=== PATIENT | male | born 1945 | race Two or more races ===

== ENCOUNTER → 2016-09-26 | Outpatient (CLI) | payer MEDICARE ==
[2016-09-26 13:43] LABS: APPEARANCE,URINE CLEAR; BILIRUBIN,URINE NEGATIVE (NEGATIVE); GLUCOSE, URINE >=500 mg/dL (NEGATIVE); KETONES,URINE NEGATIVE (NEGATIVE); LEUKOCYTE ESTERASE,URINE NEGATIVE (NEGATIVE); NITRITE,URINE NEGATIVE (NEGATIVE); PROTEIN,URINE NEGATIVE (NEGATIVE); URINE SPECIFIC GRAVITY 1.022; UROBILINOGEN,URINE NEGATIVE mg/dL (<2.0)
[2016-09-26 13:46] LABS: ALBUMIN 4.6 g/dL (3.5-5.0); ANION GAP 15 (5-19); BLOOD UREA NITROGEN 23 mg/dL (7-20); CALCIUM 9.4 mg/dL (8.4-10.2); CARBON DIOXIDE 28 mmol/L (22-30); CHLORIDE 98 mmol/L (98-107); CREATININE RESULT 1.32 mg/dL (0.52-1.25); GLUCOSE 113 mg/dL (75-110); PHOSPHORUS 3.8 mg/dL (2.5-4.5); POTASSIUM 4.1 mmol/L (3.6-5.0); SODIUM 140.7 mmol/L (137-145)
[2016-09-27 07:13] LABS: VITAMIN D 25-HYDROXY 24.9 ng/mL (30.0-100.0)
[2016-09-27 11:39] LABS: CREATININE URINE 137.6 mg/dL (Not Estab.); MICROALBUMIN URINE 23.9 ug/mL (Not Estab.)
== END ==
LOC: OD 11:58
PROVIDERS: ATTEND Internal Medicine Nephrology
DX: E11.22 Type 2 diabetes mellitus with diabetic chronic kidney disease (principal); N18.3 Chronic kidney disease, stage 3 (moderate); N39.0 Urinary tract infection, site not specified
CPT/HCPCS: 36415; 80048; 81001; 82040; 82043; 82306; 82570; 83970; 84100

== ENCOUNTER → 2016-10-22 | Outpatient (CLI) | payer MEDICARE ==
--- NOTE | 2016-10-22 11:45 | RADIOLOGY REPORT (SQ) ---
EXAM DESCRIPTION: CHEST PA/LATERAL COMPLETED DATE/TIME: 10/22/2016 11:30 am REASON FOR STUDY: UNSPECIFIED ASTHMA, UNCOMPLICATED COMPARISON: 05/30/2015 NUMBER OF VIEWS: Two view. TECHNIQUE: Frontal and lateral radiographic views of the chest acquired. LIMITATIONS: None. FINDINGS: LUNGS AND PLEURA: Questionable vague opacity left base. Recommend repeat PA in deep insp iration as well a shallow frontal obliques. Lungs otherwise clear. MEDIASTINUM AND HILAR STRUCTURES: No masses or contour abnormalities. HEART AND VASCULATURE: Heart normal size. No evidence for failure. BONY STRUCTURES: No acute findings. HARDWARE: None. OTHER: No other significant finding. IMPRESSION: NO SIGNIFICANT RADIOGRAPHIC FINDING IN THE CHEST. TECHNICAL DOCUMENTATION: JOB ID: [id number] [employer]- All Rights Reserved
== END ==
LOC: OD 11:12
PROVIDERS: ATTEND Internal Medicine Cardiovascular Disease
DX: I12.9 Hypertensive chronic kidney disease with stage 1 through stage 4 chronic kidney disease, or unspecified chronic kidney disease (principal); N18.3 Chronic kidney disease, stage 3 (moderate); E78.5 Hyperlipidemia, unspecified; E11.22 Type 2 diabetes mellitus with diabetic chronic kidney disease; Z76.89 Persons encountering health services in other specified circumstances
CPT/HCPCS: 71020

== ENCOUNTER → 2016-10-22 | Outpatient (CLI) | payer MEDICARE ==
[2016-10-22 13:10] LABS: CHOLESTEROL 95.64 mg/dL (0-200); Direct HDL 27 mg/dL (>40); TRIGLYCERIDES 265 mg/dL (<150)
[2016-10-22 13:33] LABS: DIRECT LDL < 30 mg/dL (<100)
== END ==
LOC: OD 11:41
PROVIDERS: ATTEND Internal Medicine Cardiovascular Disease
DX: I12.9 Hypertensive chronic kidney disease with stage 1 through stage 4 chronic kidney disease, or unspecified chronic kidney disease (principal); N18.3 Chronic kidney disease, stage 3 (moderate); J45.909 Unspecified asthma, uncomplicated; E78.5 Hyperlipidemia, unspecified; Z76.89 Persons encountering health services in other specified circumstances
CPT/HCPCS: 36415; 71020; 80061; 84443

== ENCOUNTER → 2016-12-05 | Outpatient (CLI) | payer MEDICARE ==
[2016-12-05 14:32] LABS: ALANINE AMINOTRANSFERASE 34 U/L (21-72); ALBUMIN 4.4 g/dL (3.5-5.0); ALKALINE PHOSPHATASE 78 U/L (38-126); ANION GAP 16 (5-19); ASPARTATE AMINO TRANSFERASE 28 U/L (17-59); BILIRUBIN,DIRECT 0.4 mg/dL (0.0-0.4); BILIRUBIN,TOTAL 0.5 mg/dL (0.2-1.3); BLOOD UREA NITROGEN 20 mg/dL (7-20); CALCIUM 9.6 mg/dL (8.4-10.2); CARBON DIOXIDE 25 mmol/L (22-30); CHLORIDE 101 mmol/L (98-107); CREATININE RESULT 1.29 mg/dL (0.52-1.25); GLUCOSE 92 mg/dL (75-110); MAGNESIUM 1.6 mg/dL (1.6-2.3); POTASSIUM 4.6 mmol/L (3.6-5.0); SODIUM 141.6 mmol/L (137-145); TOTAL PROTEIN 7.6 g/dL (6.3-8.2)
== END ==
LOC: OD 12:51
PROVIDERS: ATTEND Physician Assistant
DX: R06.02 Shortness of breath (principal)
CPT/HCPCS: 36415; 80053; 83735; 83880

== ENCOUNTER → 2016-12-31 | Outpatient (CLI) | payer MEDICARE ==
--- NOTE | 2016-12-31 17:27 | RADIOLOGY REPORT (SQ) ---
EXAM DESCRIPTION: CT HEAD WITHOUT COMPLETED DATE/TIME: 12/31/2016 5:09 pm REASON FOR STUDY: HEADACHE R51 HEADACHE COMPARISON: None. TECHNIQUE: Axial images acquired through the brain without intravenous contrast. Images reviewed wi th bone, brain and subdural windows. Images stored on PACS. All CT scanners at this facility use dose modulation, iterative reconstruction, and/or weight based d osing when appropriate to reduce radiation dose to as low as reasonably achievable (ALARA). [facility]: Dose Right [facility]: CareDose [facility]: Dose Right [facility]: Teradose 4D [facility]: [employer] RADIATION DOSE: Up-to-date CT equipment and radiation dose reduction techniques were employed. CTDIv ol: 49.0 mGy. DLP: 783 mGy-cm. mGy. LIMITATIONS: None. FINDINGS: VENTRICLES: Prominent. CEREBRUM: No masses. No hemorrhage. No midline shift. Minimal areas of low density in the white ma tter most likely due to chronic micro-vascular ischemic change. No evidence for acute infarction. CEREBELLUM: No masses. No hemorrhage. No alteration of density. No evidence for acute infarction. EXTRAAXIAL SPACES: Mild age-related involutional change. No fluid collections. No masses. ORBITS AND GLOBE: No intra- or extraconal masses. Normal contour of globe without masses. CALVARIUM: No fracture. PARANASAL SINUSES: No fluid or mucosal thickening. SOFT TISSUES: No mass or hematoma. OTHER: No other significant finding. IMPRESSION: Minimal CHRONIC CHANGES OF ATROPHY AND MICROVASCULAR ISCHEMIA. NO ACUTE PROCESS. EVIDENCE OF ACUTE STROKE: NO. TECHNICAL DOCUMENTATION: JOB ID: [id number] Quality ID # 436: Final reports with documentation of one or more dose reduction techniques (e.g., Au tomated exposure control, adjustment of the mA and/or kV according to patient size, use of iterative reconstruction technique) 2010 [employer]- All Rights Reserved
== END ==
LOC: RAD 16:55
PROVIDERS: ATTEND Internal Medicine
DX: R51 Headache (principal)
CPT/HCPCS: 70450

== ENCOUNTER → 2017-05-29 | Outpatient (CLI) | payer MEDICARE ==
[2017-05-29 18:19] LABS: ABSOLUTE LYMPHOCYTES (AUTO) 3.7 10^3/uL (0.5-4.7); ABSOLUTE MONOCYTES (AUTO) 0.8 10^3/uL (0.1-1.4); BASOPHILS % (AUTO) 0.3 % (0-2); EOSINOPHILS % (AUTO) 8.1 % (0-6); HEMATOCRIT 48.6 % (37.9-51.0); LYMPHOCYTES % (AUTO) 29.3 % (13-45); MEAN CORPUSCULAR HEMOGLOBIN 28.2 pg (27.0-33.4); MEAN CORPUSCULAR HGB CONC 32.8 g/dL (32.0-36.0); MEAN CORPUSCULAR VOLUME 86 fl (80-97); MONOCYTES % (AUTO) 6.6 % (3-13); PLATELET COUNT 236 10^3/uL (150-450); RED BLOOD COUNT 5.66 10^6/uL (4.35-5.55); RED CELL DISTRIBUTION WIDTH 14.2 % (11.5-14.0); SEGMENTED NEUTROPHILS % (AUTO) 55.7 % (42-78); TOTAL CELLS COUNTED % (AUTO) 100 %; WHITE BLOOD COUNT 12.5 10^3/uL (4.0-10.5)
[2017-06-02 12:37] LABS: M001-IGE PENICILLIUM CHRYSOGEN <0.10 kU/L (Class 0); M002-IGE CLADOSPORIUM HERBARUM <0.10 kU/L (Class 0); M003-IGE ASPERGILLUS FUMIGATUS <0.10 kU/L (Class 0); M004-IGE MUCOR RACEMOSUS 0.33 kU/L (Class I); M005-IGE CANDIDA ALBICANS <0.10 kU/L (Class 0); M006-IGE ALTERNARIA ALTERNATA <0.10 kU/L (Class 0); M009-IGE FUSARIUM PROLIFERATUM <0.10 kU/L (Class 0); M010-IGE STEMPHYLIUM HERBARUM <0.10 kU/L (Class 0); M012-IGE AUREOBASIDI PULLULANS <0.10 kU/L (Class 0); M013-IGE PHOMA BETAE <0.10 kU/L (Class 0); M014-IGE EPICOCCUM PURPURASCEN <0.10 kU/L (Class 0)
[2017-06-02 14:02] LABS: IMMUNOGLOBULIN E 1615 IU/mL (0-100)
[2017-06-02 16:37] LABS: ASPERGILLUS FLAVUS Negative (Neg:<1:1); ASPERGILLUS FUMIGATUS Negative (Neg:<1:1)
[2017-06-02 17:26] LABS: ASPERGILLUS NIGER Negative (Neg:<1:1)
== END ==
LOC: OD 17:05
PROVIDERS: ATTEND Physician Assistant
DX: J30.9 Allergic rhinitis, unspecified (principal)
CPT/HCPCS: 36415; 82785; 85025; 86003; 86606

== ENCOUNTER → 2018-01-01 | Outpatient (CLI) | payer MEDICARE ==
--- NOTE | 2018-01-01 12:10 | RADIOLOGY REPORT (SQ) ---
EXAM DESCRIPTION: CHEST 2 VIEWS COMPLETED DATE/TIME: 01/01/2018 12:02 pm REASON FOR STUDY: DYSPNEA R06.00 (TO BE READ WITH NM VQ SCAN) COMPARISON: Two-view chest 05/30/2015, 10/22/2016 EXAM PARAMETERS: NUMBER OF VIEWS: two views TECHNIQUE: Digital Frontal and Lateral radiographic views of the chest acquired. RADIATION DOSE: NA LIMITATIONS: none FINDINGS: LUNGS AND PLEURA: No opacities, masses or pneumothorax. No pleural effusion. MEDIASTINUM AND HILAR STRUCTURES: No masses or contour abnormalities. HEART AND VASCULAR STRUCTURES: Heart normal size. No evidence for failure. BONES: No acute findings. HARDWARE: None in the chest. OTHER: No other significant finding. IMPRESSION: NO ACUTE RADIOGRAPHIC FINDING IN THE CHEST. TECHNICAL DOCUMENTATION: JOB ID: [id number] [employer]- All Rights Reserved Reading location - IP/workstation name: [email or web address]
--- NOTE | 2018-01-01 13:18 | RADIOLOGY REPORT (SQ) ---
EXAM DESCRIPTION: NM LUNG VENT/PERF SCAN COMPLETED DATE/TIME: 01/01/2018 1:07 pm REASON FOR STUDY: DYSPNEA R06.00 DYSPNEA, UNSPECIFIED COMPARISON: None. RADIONUCLIDE AND DOSE: 5 millicuries TC-99m MAA Intravenous 30 millicuries TC-99m DTPA Inhaled aerosol TECHNIQUE: Eight views of the lungs acquired post ventilation of DTPA aerosol. Eight matching views of the lungs acquired following injection of MAA. LIMITATIONS: None. FINDINGS: VENTILATION: Symmetric and homogeneous distribution of DTPA aerosol during ventilatory pha se. No significant areas of photopenia. PERFUSION: Perfusion images with normal homogenous activity and no wedge-shaped or segmental defects. No ventilation-perfusion mismatches. OTHER: No other significant finding. IMPRESSION: NORMAL VENTILATION-PERFUSION LUNG SCAN. NEGATIVE FOR PULMONARY EMBOLI. TECHNICAL DOCUMENTATION: JOB ID: [id number] [employer]- All Rights Reserved Reading location - IP/workstation name: [email or web address]
== END ==
LOC: RAD 11:29
PROVIDERS: ATTEND Physician Assistant
DX: R06.00 Dyspnea, unspecified (principal)
CPT/HCPCS: 71046; 78582; A9540; A9567; Q9969

== ENCOUNTER → 2018-02-21 | Outpatient (CLI) | payer MEDICARE ==
--- NOTE | 2018-02-21 12:18 | RADIOLOGY REPORT (SQ) ---
EXAM DESCRIPTION: CT CHEST WITHOUT COMPLETED DATE/TIME: 02/21/2018 10:49 am REASON FOR STUDY: COUGH R05 COUGH left-sided chest pain COMPARISON: Chest films 01/01/2018, 05/30/2015, 06/22/2014 TECHNIQUE: CT scan performed of the chest without intravenous contrast. Images reviewed with lung, soft tissue and bone windows. Reconstructed coronal and sagittal MPR images reviewed. All images st ored on PACS. All CT scanners at this facility use dose modulation, iterative reconstruction, and/or weight based d osing when appropriate to reduce radiation dose to as low as reasonably achievable (ALARA). [facility]: Dose Right [facility]: CareDose [facility]: Dose Right [facility]: Teradose 4D [facility]: [employer] RADIATION DOSE: CT Rad equipment meets quality standard of care and radiation dose reduction techniq ues were employed. CTDIvol: 20.2 mGy. DLP: 841 mGy-cm. mGy. LIMITATIONS: No technical limitations. FINDINGS: LUNGS AND PLEURA: No masses, infiltrates, or pneumothorax. No pleural effusions or pleura l calcifications. HILAR AND MEDIASTINAL STRUCTURES: No identified masses or abnormal nodes. No obvious aneurysm. HEART AND VASCULAR STRUCTURES: No aneurysm. No pericardial effusion. Mild coronary artery calcifica tions UPPER ABDOMEN: 2 cm fatty polyp within the hepatic flexure of colon on axial image 64 and coronal stevenson ge 44 THYROID AND OTHER SOFT TISSUES: No masses. No adenopathy. Mild bilateral gynecomastia BONES: No significant finding. HARDWARE: None in the chest. OTHER: No other significant findings. IMPRESSION: No CT findings to explain history of left-sided chest pain or cough Incidental finding of a 2 cm fatty polyp in the hepatic flexure colon TECHNICAL DOCUMENTATION: JOB ID: [id number] Quality ID # 436: Final reports with documentation of one or more dose reduction techniques (e.g., Au tomated exposure control, adjustment of the mA and/or kV according to patient size, use of iterative reconstruction technique) 2010 [employer]- All Rights Reserved Reading location - IP/workstation name: [email or web address]
== END ==
LOC: RAD 10:12
PROVIDERS: ATTEND Internal Medicine Pulmonary Disease
DX: R05 Cough (principal); K63.5 Polyp of colon
CPT/HCPCS: 71250

== ENCOUNTER 2018-03-04 06:53 | Day surgery (SDC) | payer MEDICARE ==
[~2018-03-04 06:53] MED LIST: BUPIVACAINE HCL 0.75% INJ/PF (7.5 MG/1 ML) 10 ML SDV OD PRN; KETOROLAC TROMETHAMINE 0.45% 4 DROP/0.4 ML DROPERETTE OD PRN; LIDOCAINE 4% INJ/PF (40 MG/ML) 5 ML AMPUL OD PRN
[2018-03-04] MEDS ORDERED: MIDAZOLAM 2 MG/2 ML INJ ONE (06:56)
[2018-03-04] MEDS ORDERED: LIDOCAINE 1% INJ-PF (10 MG/ML) 30 ML SDV ONE (07:21)
[2018-03-04] MEDS ORDERED: CHONDR SU A NA/HYALUR INTRAOC KIT (SURGICARE) ONE (07:21)
[2018-03-04] MEDS ORDERED: EPINEPHRINE INJ/PF 1 MG/1 ML AMPULE ONE (07:21)
[2018-03-04] MEDS: TETRACAINE HCL 0.5% OPH SOLN 0.6 ML DROPERETTE OD PRN ×2 (07:23→07:47)
[2018-03-04] MEDS: TROPICAMIDE 1% OPH SOLN 3 ML OD PRN ×3 (07:24→07:45)
[2018-03-04] MEDS: CYCLOPENTOLATE 0.2%/PHENYLEPHRINE 1% OPH SOLN 2 ML OD PRN ×3 (07:24→07:45)
[2018-03-04] MEDS: BESIFLOXACIN HCL 0.6% OPH SUSP 5 ML BOTTLE OD PRN ×4 (07:25→08:29)
[2018-03-04] MEDS: DORZOLAMIDE HCL 2%/TIMOLOL MALEAT 0.5% OPH SOLN 10 ML OD PRN ×2 (08:29)
--- NOTE | 2018-03-04 08:47 | [facility] OPERATIVE REPORT E ---
[facility] NAME: RODERICK ANSARI AGE: 72Y DATE OF SURGERY: 03/04/2018 ROOM: PREOPERATIVE DIAGNOSIS: Cataract, right eye. POSTOPERATIVE DIAGNOSIS: Cataract, right eye. PROCEDURE PERFORMED: Phacoemulsification with posterior chamber intraocular lens, right eye. SURGEON: KAZ BERRIOS M.D. ANESTHESIA: Topical with MAC. INDICATIONS FOR SURGERY: Difficulty reading road signs and words on TV. PROCEDURE: The patient was brought to the operating room and placed on the operative table. Following tetracaine drops, topical anesthesia was administered. This consisted of instrument wipe pledgets soaked in a solution of 4% Xylocaine mixed with 0.75% Marcaine in a 1:2 ratio. A 2 x 1 cm pledget was placed in the superior fornix. A 1 x 1 cm pledget was placed in the inferior fornix. The eye was patched shut for 5 minutes. The patch was removed. The eye was sterilely prepped and draped in the usual manner. Lid speculum was placed in the eye. The pledgets were removed and 4-0 black silk sutures were placed around the superior and the inferior rectus muscles to be used as traction. A conjunctival peritomy was made at the 10 o'clock position. Hemostasis was obtained with bipolar cautery. A posterior limbal groove was created using a crescent knife and dissected anteriorly towards the cornea. A sharp point blade was used to create a paracentesis site at the 2 o'clock position. A 2.4 mm keratome was used to enter the anterior chamber through the groove. Viscoelastic was injected into the anterior chamber. An anterior capsulotomy was performed using Utrata forceps in a capsulorrhexis fashion. Hydrodissection and hydrodelineation were performed. Phacoemulsification was performed in giowvw-[id number]-[id number] technique. Total phaco time was 6.91 CDE. Following this, the I/A unit was used to remove residual cortex. Viscoelastic was injected into the capsular bag. Intraocular lens model [id number], 20.0 diopters, serial number [id number], was placed in the capsular bag. The I/A unit was used to remove residual viscoelastic. The wound was seen to be watertight under high and low pressure, and no sutures were placed. The intraocular lens was well centered. The pressure was adjusted in the eye to normal pressure. The 4-0 black silk sutures and lid speculum were removed. One drop of Cosopt was placed in the eye at the end of the surgery. The eye was shielded after Besivance drops were placed. The patient tolerated the procedure well and was sent to the recovery room in good condition. DICTATING PHYSICIAN: KAZ BERRIOS M.D. [id number] PHY#: [id number] ID: [id number] JOB#: [id number] ACCT: [id number] cc:KAZ BERRIOS M.D. >
--- NOTE | 2018-03-04 08:52 | [facility] DISCHARGE SUMMARY E ---
[facility] Discharge Summary NAME: RODERICK ANSARI AGE: 72Y ADMITTED: 03/04/2018 DISCHARGED: 03/04/2018 FINAL DIAGNOSIS: Cataract, right eye. HOSPITAL COURSE: The patient is a 72-year-old who underwent uneventful cataract extraction with intraocular lens implant, right eye, on 03/04/2018. He will be discharged to home. He was instructed to resume preoperative medications; to take Tylenol as needed for discomfort; to keep his eye shielded; to use Durezol, Prolensa, and Besivance at 3 p.m. and 8 p.m.; and to follow up in my office in 1 day. DICTATING PHYSICIAN: KAZ BERRIOS M.D. [id number] PHY#: [id number] ID: [id number] JOB#: [id number] ACCT: [id number] cc:KAZ BERRIOS M.D. >
== END 2018-03-04 09:22 | disposition home or self-care (01) ==
LOC: SC 06:53
PROVIDERS: ATTEND Ophthalmology
DX: H25.813 Combined forms of age-related cataract, bilateral (principal); H43.811 Vitreous degeneration, right eye; G51.33 Clonic hemifacial spasm, bilateral; E11.9 Type 2 diabetes mellitus without complications; I10 Essential (primary) hypertension; E78.00 Pure hypercholesterolemia, unspecified; J45.909 Unspecified asthma, uncomplicated; M10.9 Gout, unspecified; M19.90 Unspecified osteoarthritis, unspecified site; K21.9 Gastro-esophageal reflux disease without esophagitis; I49.9 Cardiac arrhythmia, unspecified; Z86.73 Personal history of transient ischemic attack (TIA), and cerebral infarction without residual deficits; Z79.51 Long term (current) use of inhaled steroids; Z79.82 Long term (current) use of aspirin; Z79.899 Other long term (current) drug therapy; Z79.84 Long term (current) use of oral hypoglycemic drugs; Z88.0 Allergy status to penicillin
CPT/HCPCS: 66984; 82962; V2632; J2250; J3490 ×4; A9270; J0171; 142

== ENCOUNTER 2018-03-18 09:38 | Day surgery (SDC) | payer MEDICARE ==
[~2018-03-18 09:38] MED LIST changes: -BUPIVACAINE HCL 0.75% INJ/PF (7.5 MG/1 ML) 10 ML SDV OD PRN; -KETOROLAC TROMETHAMINE 0.45% 4 DROP/0.4 ML DROPERETTE OD PRN; +KETOROLAC TROMETHAMINE 0.45% 4 DROP/0.4 ML DROPERETTE OS PRN; -LIDOCAINE 4% INJ/PF (40 MG/ML) 5 ML AMPUL OD PRN
[2018-03-18] MEDS: CYCLOPENTOLATE 0.2%/PHENYLEPHRINE 1% OPH SOLN 2 ML OS PRN ×3 (10:22→10:52)
[2018-03-18] MEDS: TROPICAMIDE 1% OPH SOLN 3 ML OS PRN ×3 (10:22→10:52)
[2018-03-18] MEDS: BESIFLOXACIN HCL 0.6% OPH SUSP 5 ML BOTTLE OS PRN ×4 (10:23→11:37)
[2018-03-18] MEDS: TETRACAINE HCL 0.5% OPH SOLN 0.6 ML DROPERETTE OS PRN ×4 (10:24→11:05)
[2018-03-18] MEDS ORDERED: MIDAZOLAM 2 MG/2 ML INJ ONE (10:40)
[2018-03-18] MEDS: BUPIVACAINE HCL 0.75% INJ/PF (7.5 MG/1 ML) 10 ML SDV OS PRN ×2 (11:07)
[2018-03-18] MEDS: LIDOCAINE 4% INJ/PF (40 MG/ML) 5 ML AMPUL OS PRN ×2 (11:07)
[2018-03-18] MEDS: EPINEPHRINE INJ/PF 1 MG/1 ML AMPULE ONE ×2 (11:20)
[2018-03-18] MEDS: CHONDR SU A NA/HYALUR INTRAOC KIT (SURGICARE) ONE ×2 (11:20)
[2018-03-18] MEDS: LIDOCAINE 1% INJ-PF (10 MG/ML) 30 ML SDV ONE ×2 (11:20)
[2018-03-18] MEDS: DORZOLAMIDE HCL 2%/TIMOLOL MALEAT 0.5% OPH SOLN 10 ML OS PRN ×2 (11:37)
--- NOTE | 2018-03-18 21:47 | [facility] OPERATIVE REPORT E ---
[facility] NAME: RODERICK ANSARI AGE: 72Y DATE OF SURGERY: 03/18/2018 ROOM: [facility] Operative Report PREOPERATIVE DIAGNOSIS: CATARACT, LEFT EYE. POSTOPERATIVE DIAGNOSIS: CATARACT, LEFT EYE. PROCEDURE PERFORMED: PHACOEMULSIFICATION WITH POSTERIOR CHAMBER INTRAOCULAR LENS, LEFT EYE. SURGEON: KAZ BERRIOS MD ANESTHESIA: TOPICAL WITH MAC. INDICATIONS FOR SURGERY: Difficulty with driving at night. PROCEDURE: The patient was brought to the Operating Room and placed on the operative table. Following tetracaine drops, topical anesthesia was administered. This consisted of instrument wipe pledgets soaked in a solution of 4% Xylocaine mixed with 0.75% Marcaine in a 1:2 ratio. A 2 x 1 cm pledget was placed in the superior fornix. A 1 x 1 cm pledget was placed in the inferior fornix. The eye was patched shut for 5 minutes. The patch was removed. The eye was sterilely prepped and draped in the usual manner. Lid speculum was placed in the eye. The pledgets were removed. 4-0 black silk sutures were placed around the superior and the inferior rectus muscles to be used as traction. A conjunctival peritomy was made at the 10 o'clock position. Hemostasis was obtained with bipolar cautery. A posterior limbal groove was created using a crescent knife and dissected anteriorly towards the cornea. A sharp point blade was used to create a paracentesis site at the 2 o'clock position. A 2.4 mm keratome was used to enter the anterior chamber through the groove. Viscoelastic was injected into the anterior chamber. An anterior capsulotomy was performed using Utrata forceps in a capsulorrhexis fashion. Hydrodissection and hydrodelineation were performed. Phacoemulsification was performed in prwipk-cci-iicrjng technique. A total of 4.58 seconds phaco time was used. Following this, the I/A unit was used to remove residual cortex. Viscoelastic was injected into the capsular bag. Intraocular lens model SN60WF, 20.0 diopters, serial number [id number] was placed in the capsular bag. The I/A unit was used to remove residual viscoelastic. The wound was seen to be watertight under high and low pressure, and no sutures were placed. The intraocular lens was well centered. The pressure was adjusted in the eye to normal pressure. The 4-0 black silk sutures and lid speculum were removed. The eye was shielded after Besivance drops were placed. The patient tolerated the procedure well and was sent to the Recovery Room in good condition. DICTATING PHYSICIAN: KAZ BERRIOS M.D. DICTATING PHYSICIAN: KAZ BERRIOS M.D. [id number] PHY#: [id number] ID: [id number] JOB#: [id number] ACCT: [id number] cc:KAZ BERRIOS M.D. >
--- NOTE | 2018-03-18 21:52 | [facility] DISCHARGE SUMMARY E ---
[facility] Discharge Summary NAME: RODERICK ANSARI AGE: 72Y ADMITTED: 03/18/2018 DISCHARGED: HOSPITAL COURSE: The patient is a 72-year-old gentleman who underwent uneventful cataract extraction with intraocular lens implant left eye on 03/18/2018. He will be discharged to home. He is instructed to resume preoperative medications, take Tylenol as needed for discomfort. To keep his eye shielded. Besivance, Ilevro, and Durezol at 3:00 p.m. and 8:00 p.m. Follow up in my office in 1 day. DICTATING PHYSICIAN: KAZ BERRIOS M.D. [id number] PHY#: [id number] ID: [id number] JOB#: [id number] ACCT: [id number] cc:KAZ BERRIOS M.D. >
== END 2018-03-18 12:18 | disposition home or self-care (01) ==
LOC: SC 09:38
PROVIDERS: ATTEND Ophthalmology
DX: H25.812 Combined forms of age-related cataract, left eye (principal); Z96.1 Presence of intraocular lens; I25.10 Atherosclerotic heart disease of native coronary artery without angina pectoris; E11.9 Type 2 diabetes mellitus without complications; Z79.02 Long term (current) use of antithrombotics/antiplatelets; I25.2 Old myocardial infarction; Z79.899 Other long term (current) drug therapy; K21.9 Gastro-esophageal reflux disease without esophagitis; Z79.84 Long term (current) use of oral hypoglycemic drugs; E07.9 Disorder of thyroid, unspecified; D64.9 Anemia, unspecified; Z88.0 Allergy status to penicillin; Z79.82 Long term (current) use of aspirin; G47.30 Sleep apnea, unspecified; M10.9 Gout, unspecified
CPT/HCPCS: 66984; 82962; V2632; J2250; J3490 ×4; A9270; J0171; 142

== ENCOUNTER → 2018-09-09 | Outpatient (CLI) | payer MEDICARE ==
[2018-09-09 10:51] LABS: APPEARANCE,URINE CLEAR; BILIRUBIN,URINE NEGATIVE (NEGATIVE); COLOR,URINE YELLOW; GLUCOSE, URINE >=500 mg/dL (NEGATIVE); KETONES,URINE NEGATIVE (NEGATIVE); LEUKOCYTE ESTERASE,URINE NEGATIVE (NEGATIVE); NITRITE,URINE NEGATIVE (NEGATIVE); PROTEIN,URINE NEGATIVE (NEGATIVE); URINE SPECIFIC GRAVITY 1.015; UROBILINOGEN,URINE NEGATIVE mg/dL (<2.0)
[2018-09-09 10:59] LABS: ABSOLUTE BASOPHILS # (AUTO) 0.1 10^3/uL (0.0-0.2); ABSOLUTE LYMPHOCYTES (AUTO) 4.2 10^3/uL (0.5-4.7); ABSOLUTE MONOCYTES (AUTO) 0.6 10^3/uL (0.1-1.4); ABSOLUTE NEUT (AUTO) 5.2 10^3/uL (1.7-8.2); BASOPHILS % (AUTO) 0.5 % (0-2); EOSINOPHILS % (AUTO) 8.7 % (0-6); HEMATOCRIT 42.7 % (37.9-51.0); HEMOGLOBIN 14.1 g/dL (13.5-17.0); MEAN CORPUSCULAR HEMOGLOBIN 27.3 pg (27.0-33.4); MEAN CORPUSCULAR VOLUME 83 fl (80-97); MONOCYTES % (AUTO) 5.9 % (3-13); PLATELET COUNT 173 10^3/uL (150-450); RED BLOOD COUNT 5.16 10^6/uL (4.35-5.55); RED CELL DISTRIBUTION WIDTH 14.5 % (11.5-14.0); SEGMENTED NEUTROPHILS % (AUTO) 46.9 % (42-78); TOTAL CELLS COUNTED % (AUTO) 100 %; WHITE BLOOD COUNT 11.1 10^3/uL (4.0-10.5)
[2018-09-09 11:19] LABS: ALANINE AMINOTRANSFERASE 26 U/L (21-72); ALBUMIN 4.3 g/dL (3.5-5.0); ALKALINE PHOSPHATASE 73 U/L (38-126); ANION GAP 12 (5-19); ASPARTATE AMINO TRANSFERASE 23 U/L (17-59); BILIRUBIN,DIRECT 0.3 mg/dL (0.0-0.4); BILIRUBIN,TOTAL 0.3 mg/dL (0.2-1.3); BLOOD UREA NITROGEN 19 mg/dL (7-20); CALCIUM 9.5 mg/dL (8.4-10.2); CARBON DIOXIDE 24 mmol/L (22-30); CHLORIDE 106 mmol/L (98-107); CHOLESTEROL 94.95 mg/dL (0-200); GLUCOSE 87 mg/dL (75-110); SODIUM 142.2 mmol/L (137-145); TOTAL PROTEIN 7.5 g/dL (6.3-8.2); TRIGLYCERIDES 243 mg/dL (<150)
[2018-09-09 11:29] LABS: UR PRO/CREAT RATIO RESULT 0.1 mg/mg (0.0-0.2); URINE CREATININE 131.3 mg/dL (22-328); URINE PROTEIN 9.6 mg/dL (<12)
[2018-09-09 11:30] LABS: DIRECT LDL 38 mg/dL (<100)
[2018-09-09 11:33] LABS: VLDL CHOLESTEROL 48.6 mg/dL (10-31)
[2018-09-09 11:36] LABS: FREE T4 (FREE THYROXINE) 0.94 ng/dL (0.78-2.19)
[2018-09-09 11:49] LABS: THYROID STIMULATING HORMONE 3.77 uIU/mL (0.47-4.68)
[2018-09-10 10:38] LABS: CREATININE URINE 109.1 mg/dL (Not Estab.); MICROALBUMIN URINE 8.4 ug/mL (Not Estab.)
== END ==
LOC: LAB 10:21
PROVIDERS: ATTEND Internal Medicine
DX: I10 Essential (primary) hypertension (principal); E11.42 Type 2 diabetes mellitus with diabetic polyneuropathy
CPT/HCPCS: 36415; 80053; 80061; 81001; 82043; 82570; 83036; 84156; 84439; 84443; 84550; 85025

== ENCOUNTER 2019-07-07 21:51 | Emergency (ER) | payer MEDICARE ==
--- NOTE | 2019-07-07 22:45 | ER Document Report ---
ED General - General Chief Complaint: Laceration Stated Complaint: FALL/HEAD INJURY Time Seen by Provider: 07/07/19 22:43 Primary Care Provider: JOSE WHITMORE MD [Primary Care Provider] - Follow up as needed Mode of Arrival: Ambulatory Information source: Patient TRAVEL OUTSIDE OF THE [place] IN LAST 30 DAYS: No - HPI Onset: Just prior to arrival Onset/Duration: Sudden Quality of pain: Achy Severity: Mild Pain Level: 1 Associated symptoms: Other - bleeding from right scalp forehead and head laceration Exacerbated by: Denies Relieved by: Denies Similar symptoms previously: No Recently seen / treated by doctor: No Notes: 74 year old male with a history of CAD, HTN, PVD, Asthma, KARIE, DM, Hypothyroidism, Arthritis, GERD, Ulcer, Depression here in the ER for evaluation of a head injury. The patient slipped while in the shower and he hit is head on the ground. The patient denies LOC, nausea, vomiting, dizziness, headache, neck pain, numbness, tingling. The patient says he take a daily aspirin but no other blood thinners. - Related Data Allergies/Adverse Reactions: Penicillins Allergy (Intermediate, Verified 03/14/18 10:55) RASH all over body Past Medical History - General Information source: Patient - Social History Smoking Status: Unknown if Ever Smoked Frequency of alcohol use: Occasional Drug Abuse: None Lives with: Family Family History: Reviewed & Not Pertinent Patient has suicidal ideation: No Patient has homicidal ideation: No - Past Medical History Cardiac Medical History: Reports: Hx Heart Attack - 2014, Hx Hypertension - MEDICATED, Hx Peripheral Vascular Disease Denies: Hx Atrial Fibrillation, Hx Congestive Heart Failure, Hx Coronary Artery Disease, Hx Hypercholesterolemia Pulmonary Medical History: Reports: Hx Asthma - MEDICATED, Hx Bronchitis, Hx Sleep Apnea - wears c pap at night Denies: Hx COPD, Hx Pneumonia, Hx Tuberculosis Neurological Medical History: Denies: Hx Cerebrovascular Accident, Hx Seizures Endocrine Medical History: Reports: Hx Diabetes Mellitus Type 2, Hx Hypothyroidism GI Medical History: Reports: Hx Gastroesophageal Reflux Disease, Hx Hiatal Hernia, Hx Ulcer. Denies: Hx Hepatitis Musculoskeletal Medical History: Reports Hx Arthritis Psychiatric Medical History: Reports: Hx Depression Infectious Medical History: Denies: Hx Hepatitis Past Surgical History: Denies: Hx Open Heart Surgery, Hx Pacemaker - Immunizations Hx Diphtheria, Pertussis, Tetanus Vaccination: No Review of Systems - Review of Systems Constitutional: No symptoms reported EENT: No symptoms reported Cardiovascular: No symptoms reported Respiratory: No symptoms reported Gastrointestinal: No symptoms reported Genitourinary: No symptoms reported Male Genitourinary: No symptoms reported Musculoskeletal: No symptoms reported Skin: Other - Laceration of right forehead Hematologic/Lymphatic: No symptoms reported Neurological/Psychological: No symptoms reported -: Yes All other systems reviewed and negative Physical Exam - Vital signs Vitals: Pulse Pulse Ox 63 96 07/07/19 22:06 07/07/19 22:06 - Notes Notes: GENERAL: Well-appearing, well-nourished and in no acute distress. HEAD: Right sided forehead and scalp trauma/laceration with active bleeding. Normocephalic. EYES: Pupils equal round and reactive to light, extraocular movements intact, sclera anicteric, conjunctiva are normal. ENT: Nares patent, oropharynx clear without exudates. Moist mucous membranes. NECK: Normal range of motion, supple without lymphadenopathy or JVD. LUNGS: Breath sounds clear to auscultation bilaterally and equal. No wheezes rales or rhonchi. HEART: Regular rate and rhythm without murmurs, rubs or gallops. ABDOMEN: Soft, nontender, normoactive bowel sounds. No guarding, no rebound. No masses appreciated. EXTREMITIES: Normal range of motion, no pitting or edema. No clubbing or cyanosis. NEUROLOGICAL: Cranial nerves II through XII grossly intact. Normal speech, normal gait. PSYCH: Normal mood, normal affect. SKIN: 5cm linear laceration over right forehead which extends into the hairline with active bleeding. Rest of skin is warm, Dry, normal turgor, no rashes or lesions noted. Course - Re-evaluation Re-evalutation: 07/08/19 01:11 The patient slipped and hit his head causing a scalp laceration which I repaired in the ER. The patient had no serious intracranial injuries seen on CT. Patient was given wound care instructions and told to have his sutures removed in 7 days. No lab work needed since this was a mechanical fall. - Vital Signs Vital signs: Temp Pulse Resp BP Pulse Ox 97.9 F 56 L 18 141/65 H 95 07/08/19 00:38 07/08/19 00:38 07/08/19 00:38 07/08/19 00:38 07/08/19 00:38 - Diagnostic Test Radiology reviewed: Image reviewed, Reports reviewed Procedures - Laceration/Wound Repair Right Anterior Head Wound length (cm): 5 Wound's Depth, Shape: Superficial, Linear, Contused tissue Laceration pre-procedure: Sterile PPE donned Anesthetic type: 1% Lidocaine w/epi Volume Anesthetic (mLs): 8 Wound explored: Clean Irrigated w/ Saline (mLs): 250 Wound Repaired With: Sutures Suture Size/Type: 5:0, Prolene Number of Sutures: 9 Layer Closure?: No Post-procedure wound care: Other - nursing applied antibiotic ointment and nonstick dressing Complications: No Discharge - Discharge Clinical Impression: Scalp laceration Qualifiers: Encounter type: initial encounter Qualified Code(s): S01.01XA - Laceration without foreign body of scalp, initial encounter Condition: Stable Disposition: HOME, SELF-CARE Instructions: Head Injury Precautions ([facility]), Laceration Care ([facility]) Additional Instructions: You had 9 sutures placed in your scalp wound. Keep your head laceration covered in antibiotic ointment until it is completely healed. Have your sutures removed in 7 days. Use ice-packs for swelling. Use Tylenol and Motrin for pain. Seek medical attention for signs of a wound infection (redness, swelling, wound drainage). Referrals: JOSE WHITMORE MD [Primary Care Provider] - Follow up as needed
--- NOTE | 2019-07-07 23:07 | RADIOLOGY REPORT (SQ) ---
CT HEAD WITHOUT IV CONTRAST CLINICAL STATEMENT: FALL TECHNIQUE: Axial CT images from skull base to vertex without IV contrast. This exam was performed according to our departmental dose optimization program, and includes the following measures where applicable: automated exposure control, adjustment of the mAs and/or kVp according to patient size and/or exam, and an iterative reconstruction algorithm. COMPARISON: Unenhanced CT scan of the brain December 31 FINDINGS: There is no acute intracranial hemorrhage, mass, mass effect or abnormal extra-axial fluid collection. No evidence of an acute territorial infarct is identified. Ventricles and basilar cisterns are patent. The appearance of the brain parenchyma is stable. Calvaria: A scalp hematoma is present over the right convexity and there is dressing material indicating that there is a laceration with bleeding. No radiopaque foreign body is present. The underlying calvaria is intact. Paranasal sinuses: Visualized portions of the orbits and paranasal sinuses are unremarkable. skull base: Unremarkable IMPRESSION: 1. No intracranial hemorrhage or mass lesion. 2. Scalp injury. No fracture.
[2019-07-07] MEDS ORDERED: LIDOCAINE 1%/EPINEPHRINE INJ 20 ML VIAL ONE (23:10)
[2019-07-07] MEDS ORDERED: LIDOCAINE 1.5%/EPINEPHRINE INJ-PF 30 ML SDV INJ ONE (23:41)
[2019-07-07] MEDS ORDERED: DIPH/PERTUSS(ACELL)/TETANUS VAC/PF 0.5 ML SYR (>=10YO) IM ONE (23:42)
[2019-07-08] MEDS ORDERED: LIDOCAINE 1%/EPINEPHRINE INJ 20 ML VIAL INJ ONE (00:17)
[2019-07-08 00:54] VITALS: BP 141/65
== END 2019-07-08 00:45 | disposition home or self-care (01) ==
LOC: ER 21:51
DX: S01.01XA Laceration without foreign body of scalp, initial encounter (principal); S01.81XA Laceration without foreign body of other part of head, initial encounter; W18.2XXA Fall in (into) shower or empty bathtub, initial encounter; E11.51 Type 2 diabetes mellitus with diabetic peripheral angiopathy without gangrene; I10 Essential (primary) hypertension; J45.909 Unspecified asthma, uncomplicated; Z79.82 Long term (current) use of aspirin; Z88.0 Allergy status to penicillin; Z23 Encounter for immunization
CPT/HCPCS: 99283; 90471; 70450; 90715; 12002; J3490

== ENCOUNTER → 2020-04-06 | Outpatient (CLI) | payer MEDICARE ==
--- NOTE | 2020-04-06 15:48 | RADIOLOGY REPORT (SQ) ---
EXAM DESCRIPTION: KNEE BILAT AP UPRIGHT IMAGES COMPLETED DATE/TIME: 04/06/2020 3:28 pm REASON FOR STUDY: (M17.0)BILATERAL PRIMARY OSTEOARTHRITIS OF KNEE M17.0 BILATERAL PRIMARY OSTEOARTH RITIS OF KNEE COMPARISON: None. NUMBER OF VIEWS: One view. TECHNIQUE: AP standing bilateral knees. LIMITATIONS: None. FINDINGS: An AP view of both knees shows significant narrowing of the medial compartment bilaterally . There is subchondral sclerosis in the right medial femoral condyles and right tibial plateau. IMPRESSION: Bilateral medial compartment osteoarthritis, right more than left. TECHNICAL DOCUMENTATION: JOB ID: [id number] [employer]- All Rights Reserved Reading location - IP/workstation name: [email or web address]
== END ==
LOC: RAD 15:08
PROVIDERS: ATTEND Internal Medicine
DX: M17.0 Bilateral primary osteoarthritis of knee (principal)
CPT/HCPCS: 73565

== ENCOUNTER 2020-04-16 22:07 | Inpatient (IN) | payer MEDICARE ==
--- NOTE | 2020-04-16 22:55 | ER Document Report ---
ED Medical Screen (RME) - General Chief Complaint: Chest Pain Stated Complaint: FEVER,COUGH,TROUBLE BREATHING Time Seen by Provider: 04/16/20 22:48 Primary Care Provider: JOSE WHITMORE MD [Primary Care Provider] - Follow up as needed TRAVEL OUTSIDE OF THE [place] IN LAST 30 DAYS: No - HPI Notes: Patient is a 74-year-old male with history of diabetes and asthma who presents with shortness of breath and cough for the past week. Patient also reports fever and diarrhea. Patient states his is also sick but he denies any other known sick contacts or potential COVID exposures. Patient was tested for COVID-19 just prior to [place] and was negative at that time. - Related Data Allergies/Adverse Reactions: Penicillins Allergy (Intermediate, Verified 03/14/18 10:55) RASH all over body Past Medical History - Past Medical History Cardiac Medical History: Reports: Hx Heart Attack - 2013, Hx Hypertension - MEDICATED, Hx Peripheral Vascular Disease Denies: Hx Atrial Fibrillation, Hx Congestive Heart Failure, Hx Coronary Artery Disease, Hx Hypercholesterolemia Pulmonary Medical History: Reports: Hx Asthma - MEDICATED, Hx Bronchitis, Hx Sleep Apnea - wears c pap at night Denies: Hx COPD, Hx Pneumonia, Hx Tuberculosis Neurological Medical History: Denies: Hx Cerebrovascular Accident, Hx Seizures Endocrine Medical History: Reports: Hx Diabetes Mellitus Type 2, Hx Hypothyroid ism GI Medical History: Reports: Hx Gastroesophageal Reflux Disease, Hx Hiatal Hernia, Hx Ulcer. Denies: Hx Hepatitis Musculoskeltal Medical History: Reports Hx Arthritis Psychiatric Medical History: Reports: Hx Depression Infectious Medical History: Denies: Hx Hepatitis Past Surgical History: Denies: Hx Open Heart Surgery, Hx Pacemaker - Immunizations Hx Diphtheria, Pertussis, Tetanus Vaccination: No Physical Exam - Vital signs Vitals: Temp Pulse Resp BP Pulse Ox 99.4 F 85 17 157/89 H 90 L 04/16/20 22:25 04/16/20 22:25 04/16/20 22:25 04/16/20 22:25 04/16/20 22:25 - Respiratory Respiratory status: Labored Breath sounds: Normal Course - Re-evaluation Re-evalutation: I have greeted and performed a rapid initial assessment of this patient. A comprehensive ED assessment and evaluation of the patient, analysis of test results and completion of medical decision making process will be conducted by an additional ED providers. The patient was evaluated during the global COVID-19 pandemic and that diagnosis was suspected/considered upon their initial presentation. Their evaluation, treatment and testing was consistent with current guidelines for patients who present with complaints or symptoms that may be related to COVID-19. - Vital Signs Vital signs: Temp Pulse Resp BP Pulse Ox 99.4 F 85 17 157/89 H 90 L 04/16/20 22:25 04/16/20 22:25 04/16/20 22:25 04/16/20 22:25 04/16/20 22:25 Doctor's Discharge - Discharge Referrals: JOSE WHITMORE MD [Primary Care Provider] - Follow up as needed
[2020-04-16 23:39] LABS: ABSOLUTE LYMPHOCYTES (AUTO) 1.4 10^3/uL (0.5-4.7); ABSOLUTE MONOCYTES (AUTO) 0.8 10^3/uL (0.1-1.4); ABSOLUTE NEUT (AUTO) 5.6 10^3/uL (1.7-8.2); BASOPHILS % (AUTO) 0.5 % (0-2); EOSINOPHILS % (AUTO) 0.2 % (0-6); HEMATOCRIT 47.4 % (37.9-51.0); HEMOGLOBIN 15.8 g/dL (13.5-17.0); LYMPHOCYTES % (AUTO) 18.4 % (13-45); MEAN CORPUSCULAR HEMOGLOBIN 27.2 pg (27.0-33.4); MEAN CORPUSCULAR HGB CONC 33.4 g/dL (32.0-36.0); MEAN CORPUSCULAR VOLUME 81 fl (80-97); MONOCYTES % (AUTO) 9.6 % (3-13); PLATELET COUNT 203 10^3/uL (150-450); RED BLOOD COUNT 5.83 10^6/uL (4.35-5.55); RED CELL DISTRIBUTION WIDTH 15.5 % (11.5-14.0); SEGMENTED NEUTROPHILS % (AUTO) 71.3 % (42-78); TOTAL CELLS COUNTED % (AUTO) 100 %; WHITE BLOOD COUNT 7.8 10^3/uL (4.0-10.5)
[2020-04-16 23:42] LABS: VENOUS BLOOD BASE EXCESS -6.3 mmol/L; VENOUS BLOOD HCO3 19.7 mmol/L (20-32); VENOUS BLOOD PCO2 40.8 mmHg (35-63); VENOUS BLOOD PH 7.3 (7.30-7.42)
[2020-04-16 23:46] LABS: ALBUMIN 4.1 g/dL (3.5-5.0); ALKALINE PHOSPHATASE 69 U/L (38-126); ANION GAP 11 (5-19); ASPARTATE AMINO TRANSFERASE 107 U/L (17-59); BILIRUBIN,DIRECT 0.6 mg/dL (0.0-0.4); BILIRUBIN,TOTAL 1.1 mg/dL (0.2-1.3); BLOOD UREA NITROGEN 20 mg/dL (7-20); CALCIUM 9.3 mg/dL (8.4-10.2); CARBON DIOXIDE 20 mmol/L (22-30); CHLORIDE 105 mmol/L (98-107); GLUCOSE 115 mg/dL (75-110); POTASSIUM 4.2 mmol/L (3.6-5.0); TOTAL PROTEIN 8.5 g/dL (6.3-8.2)
[2020-04-16] MEDS ORDERED: IPRATROPIUM/ALBUTEROL 0.5-2.5 MG/3 ML AMPUL NEB ONE (23:48)
--- NOTE | 2020-04-16 23:50 | ER Document Report ---
ED Respiratory Problem - General Chief Complaint: Chest Pain Stated Complaint: FEVER,COUGH,TROUBLE BREATHING Time Seen by Provider: 04/16/20 22:48 Mode of Arrival: Ambulatory Information source: Patient Notes: 74-year-old male past medical history significant for asthma, diabetes, hypothyroidism, hypertension presents to the emergency room complaining of cough with shortness of breath and subjective fever for the past week. Denies any nausea, vomiting, negative Covid test April 07. with similar symptoms. Per patient's son and [id number] tested positive for Covid on April 08. Patient denies diarrhea. States has been using his home nebulizer without relief of symptoms. TRAVEL OUTSIDE OF THE [place] IN LAST 30 DAYS: No - Related Data Allergies/Adverse Reactions: Penicillins Allergy (Intermediate, Verified 03/14/18 10:55) RASH all over body Past Medical History - General Information source: Patient - Social History Smoking Status: Never Smoker Frequency of alcohol use: None Drug Abuse: None Family History: Reviewed & Not Pertinent - Past Medical History Cardiac Medical History: Reports: Hx Heart Attack - 2013, Hx Hypertension - MEDICATED, Hx Peripheral Vascular Disease Denies: Hx Atrial Fibrillation, Hx Congestive Heart Failure, Hx Coronary Artery Disease, Hx Hypercholesterolemia Pulmonary Medical History: Reports: Hx Asthma - MEDICATED, Hx Bronchitis, Hx Sleep Apnea - wears c pap at night Denies: Hx COPD, Hx Pneumonia, Hx Tuberculosis Neurological Medical History: Denies: Hx Cerebrovascular Accident, Hx Seizures Endocrine Medical History: Reports: Hx Diabetes Mellitus Type 2, Hx Hyp othyroidism GI Medical History: Reports: Hx Gastroesophageal Reflux Disease, Hx Hiatal Hernia, Hx Ulcer. Denies: Hx Hepatitis Musculoskeletal Medical History: Reports Hx Arthritis Psychiatric Medical History: Reports: Hx Depression Infectious Medical History: Denies: Hx Hepatitis Past Surgical History: Denies: Hx Open Heart Surgery, Hx Pacemaker - Immunizations Hx Diphtheria, Pertussis, Tetanus Vaccination: No Review of Systems - Review of Systems Constitutional: Fever EENT: No symptoms reported Cardiovascular: No symptoms reported Respiratory: Cough, Short of breath Gastrointestinal: No symptoms reported Musculoskeletal: No symptoms reported Skin: No symptoms reported Neurological/Psychological: No symptoms reported -: Yes All other systems reviewed and negative Physical Exam - Vital signs Vitals: Temp Pulse Resp BP Pulse Ox 99.4 F 85 17 157/89 H 90 L 04/16/20 22:25 04/16/20 22:25 04/16/20 22:25 04/16/20 22:25 04/16/20 22:25 - General General appearance: Appears well, Alert In distress: Moderate - Respiratory Respiratory status: Tachypnea Chest status: Nontender Breath sounds: Rhonchi, Wheezing Chest palpation: Normal - Cardiovascular Rhythm: Regular Heart sounds: Normal auscultation Murmur: No - Neurological Neuro grossly intact: Yes Cognition: Normal Orientation: AAOx4 Mily Coma Scale Eye Opening: Spontaneous [place] Coma Scale Verbal: Oriented [place] Coma Scale Motor: Obeys Commands Calmar Coma Scale Total: 15 Speech: Normal Motor strength normal: LUE, RUE, LLE, RLE Sensory: Normal - Skin Skin Temperature: Warm Skin Moisture: Dry Skin Color: Normal Course - Re-evaluation Re-evalutation: 04/17/20 02:08 Patient is resting comfortably reviewed all lab and x-ray results with patient. Patient is hypoxic, sats dropped to the 90s when taken off of her oxygen without any exertion. Aware of need for admission. Patient is agreeable to admission. - Vital Signs Vital signs: Temp Pulse Resp BP Pulse Ox 99.4 F 85 32 H 141/80 H 91 L 04/16/20 22:25 04/16/20 22:25 04/17/20 03:01 04/17/20 03:01 04/17/20 03:01 - Laboratory Results Result Diagrams: 04/16/20 23:15 04/16/20 23:15 Laboratory Results Interpreted: 04/16/20 04/16/20 04/16/20 23:15 23:15 23:20 RBC 5.83 H RDW 15.5 H VBG HCO3 19.7 L Sodium 135.9 L Carbon Dioxide 20 L Creatinine 1.39 H Est GFR (MDRD) Non-Af 50 L Glucose 115 H Direct Bilirubin 0.6 H AST 107 H Total Protein 8.5 H SARS-CoV-2 (PCR) 04/16/20 23:20 RBC RDW VBG HCO3 Sodium Carbon Dioxide Creatinine Est GFR (MDRD) Non-Af Glucose Direct Bilirubin AST Total Protein SARS-CoV-2 (PCR) DETECTED H Critical Laboratory Results Reviewed: Yes Attending or Supervising Physician who Reviewed Labs: THALIA MATHEWS - HCO3 19.7, COVID + - Radiology Results Critical Radiology Results Reviewed: Yes Attending or Supervising Physician who Reviewed Radiology: THALIA MATHEWS - Bilateral pneumonia IV antibiotics started - EKG Interpretation by Me EKG shows normal: Sinus rhythm Additional EKG results interpreted by me: 04/17/20 00:16 EKG was interpreted by ER physician Dr. Murrieta No acute STEMI Sinus rhythm LVH Rate [address] wave abnormalities No significant change in EKG from previous EKG of 05/30/2015 - Consults Dr. Alaniz Time consulted: 02:09 - Agrees evaluation, agrees with plan, accepts admission Reason for consultation: 04/17/20 02:09 Admission for pneumonia, COVID-19 positive, hypoxic on IV antibiotics. Consulted provider: will see as inpatient Discharge - Discharge Clinical Impression: Community acquired pneumonia of left lower lobe of lung, COVID-19, Hypoxia, Tachypnea Community acquired pneumonia of left lung Qualifiers: Lung location: upper lobe of lung Qualified Code(s): J18.9 - Pneumonia, unspecified organism Condition: Good Disposition: ADMITTED INPATIENT Admitting Provider: [place] Unit Admitted: [facility]
--- NOTE | 2020-04-16 23:55 | RADIOLOGY REPORT (SQ) ---
CLINICAL HISTORY: shortness of breath and cough COMPARISON: 10/22/2016. 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 There are moderate areas of airspace disease throughout the mid and lower left lung as well as the right perihilar region. There is no pleural effusion. There is no pneumothorax. There are no acute osseous findings. IMPRESSION: Bilateral pneumonia.
[2020-04-16] MEDS ORDERED: AZITHROMYCIN INJ 500 MG VIAL IV ONE (23:57)
[2020-04-17 00:08] LABS: A TYPE INFLUENZA AG NEGATIVE (NEGATIVE); B INFLUENZA AG NEGATIVE (NEGATIVE)
[2020-04-17] MEDS ORDERED: ACETAMINOPHEN 325 MG TABLET PO ONE (00:19)
[2020-04-17] MEDS: ALBUTEROL SULFATE 0.083% NEB 2.5 MG/3 ML AMPUL NEB SCH ×4 (04:55→20:26)
[2020-04-17] MEDS ORDERED: IPRATROPIUM/ALBUTEROL 0.5-2.5 MG/3 ML AMPUL NEB PRN (07:45)
[2020-04-17 09:25] LABS: INTERNATIONAL RATION (INR) 1.14; PROTHROMBIN TIME 14.8 SEC (11.4-15.4)
[2020-04-17 09:26] LABS: FIBRINOGEN 872 mg/dL (209-497)
[2020-04-17] MEDS ORDERED: ENOXAPARIN SODIUM INJ 40 MG/0.4 ML DISP.SYRIN SUBCUT SCH (10:00)
--- NOTE | 2020-04-17 10:52 | PDOC H&P ---
History of Present Illness Admission Date/PCP: 04/17/20 02:33 JOSE WHITMORE MD Patient complains of: Fever and cough History of Present Illness: RODERICK ANSARI is a 74 year old male Is a 74-year-old male with a past significant history of the diabetes hypothy roidism hypertensions asthma came to the emergency department with a complaint of a cough with the shortness of the breath and subjective fever for the past 1 week patient's leticia same symptoms Patient is exposed to the Covid with the son and [id number] last week in emergency department patient's Covid test was positive and his is also positive Patient's denied any nausea no vomiting patient is actually negative Covid test April 07 Patient still requiring oxygen's and at this point patient admitting in the hospital for the Covid pneumonia and hypoxia When I saw the patient's still on nasal cannula complaining of shortness of the breath No chest pain Patient is received the Zithromax Start on a dexamethasone in a Covid protocol we will get the CT angiogram Past Medical History Cardiac Medical History: Reports: Myocardial Infarction - 2013, Hypertension - MEDICATED, Peripheral Vascular Disease Denies: Atrial Fibrillation, Congestive Heart Failure, Coronary Artery Disease, Hyperlipidema Pulmonary Medical History: Reports: Asthma - MEDICATED, Bronchitis, Sleep Apnea - wears c pap at night Denies: Chronic Obstructive Pulmonary Disease (COPD), Pneumonia, Tuberculosis Neurological Medical History: Denies: Seizures Endocrine Medical History: Reports: Diabetes Mellitus Type 2, Hypothyroidism GI Medical History: Reports: Gastroesophageal Reflux Disease, Hiatal Hernia Denies: Hepatitis Musculoskeltal Medical History: Reports: Arthritis Psychiatric Medical History: Reports: Depression Hematology: Reports: Anemia - Iron infusions ABOUT 6 MONTHS Denies: Sickle Cell Disease Past Surgical History Past Surgical History: Denies: Pacemaker Social History Information Source: Patient Smoking Status: Never Smoker Electronic Cigarette use?: No Frequency of Alcohol Use: None Hx Recreational Drug Use: No Drugs: None Hx Prescription Drug Abuse: No Family History Family History: Reviewed & Not Pertinent Parental Family History Reviewed: Yes Children Family History Reviewed: Yes Sibling(s) Family History Reviewed.: Yes Medication/Allergy Home Medications: Allopurinol [Zyloprim 300 mg Tablet] 300 mg PO BID 02/21/12 Buspirone HCl [Buspar 5 mg Tablet] 5 mg PO TID 02/21/12 Levothyroxine Sodium [Synthroid 0.075 mg Tablet] 112 mcg PO DAILY 02/21/12 Metoprolol Succinate [Toprol XL 100 mg Tablet] 100 mg PO DAILY 02/21/12 Omeprazole [Prilosec 40 mg Capsule] 40 mg PO DAILY 02/21/12 Potassium Chloride [Klor-Con 10 Meq Tablet ER] 10 meq PO DAILY 02/21/12 Sertraline HCl [Zoloft 50 mg Tablet] 100 mg PO DAILY 02/21/12 Simvastatin [Zocor 40 mg Tablet] 40 mg PO QHS 02/21/12 Sitagliptin Phos/Metformin HCl [Janumet 50-500 mg Tablet] 1 each PO BID 02/21/12 Trazodone HCl [Desyrel] 100 mg PO DAILY 02/21/12 Albuterol Sulfate [Proair HFA] 1 - 2 puff IH Q4 PRN 07/18/15 Albuterol Sulfate [Ventolin 0.083% Neb 2.5 mg/3 ml Ampul] 1 vial NEB Q4 PRN 07/18/15 Aspirin 81 mg PO DAILY 07/18/15 Budesonide/Formoterol Fumarate [Symbicort Hfa 160-4.5 Mcg Inhaler 6 gm] 2 puff IH Q12 07/18/15 Empagliflozin [Jardiance] 25 mg PO DAILY 07/18/15 Gabapentin 300 mg PO TID 07/18/15 Montelukast Sodium 10 mg PO DAILY 07/18/15 Valsartan/Hydrochlorothiazide [Valsartan-Hctz 320-25 mg Tab] 1 each PO DAILY 07/18/15 Cetirizine HCl [Zyrtec 10 mg Chewable Tab] 10 mg PO DAILY 02/25/18 Clopidogrel Bisulfate [Plavix 75 mg Tablet] 75 mg PO DAILY 02/25/18 Donepezil HCl [Donepezil HCl Odt] 5 mg PO DAILY 02/25/18 Dulaglutide [Trulicity] 0.75 mg SQ .WK 02/25/18 Empagliflozin [Jardiance] 10 mg PO DAILY 02/25/18 Topiramate [Topamax 100 Mg Tablet] 100 mg PO DAILY 02/25/18 Besifloxacin HCl [Besivance 0.6% Oph Susp 5 ml] 1 drop OP ASDIR 03/04/18 Bromfenac Sodium [Prolensa] 1 drop OP ASDIR 03/04/18 Difluprednate [Durezol] 1 drop OP ASDIR 03/04/18 Allergies/Adverse Reactions: Penicillins Allergy (Intermediate, Verified 03/14/18 10:55) RASH all over body Review of Systems Constitutional: PRESENT: fever(s). ABSENT: chills, headache(s), weight gain, weight loss Eyes: ABSENT: visual disturbances Ears: ABSENT: hearing changes Cardiovascular: ABSENT: chest pain, dyspnea on exertion, edema, orthropnea, palpitations Respiratory: PRESENT: cough, dyspnea. ABSENT: hemoptysis Gastrointestinal: ABSENT: abdominal pain, constipation, diarrhea, hematemesis, hematochezia, nausea, vomiting Genitourinary: ABSENT: dysuria, hematuria Musculoskeletal: ABSENT: joint swelling Integumentary: ABSENT: rash, wounds Neurological: ABSENT: abnormal gait, abnormal speech, confusion, dizziness, focal weakness, syncope Psychiatric: ABSENT: anxiety, depression, homidical ideation, suicidal ideation Endocrine: ABSENT: cold intolerance, heat intolerance, menstrual abnormalities, polydipsia, polyuria Hematologic/Lymphatic: ABSENT: easy bleeding, easy bruising, lymphadenopathy Physical Exam Vital Signs: Temp Pulse Resp BP Pulse Ox 97.6 F 79 18 130/57 H 91 L 04/17/20 08:16 04/17/20 08:16 04/17/20 08:00 04/17/20 08:16 04/17/20 08:16 Intake & Output 04/16/20 04/17/20 04/18/20 06:59 06:59 06:59 Intake Total 472 Balance 472 Weight 99.9 kg General appearance: PRESENT: no acute distress, well-developed, well-nourished Head exam: PRESENT: atraumatic, normocephalic Eye exam: PRESENT: conjunctiva pink, EOMI, PERRLA. ABSENT: scleral icterus Ear exam: PRESENT: normal external ear exam Mouth exam: PRESENT: moist, tongue midline Neck exam: PRESENT: full ROM. ABSENT: carotid bruit, JVD, lymphadenopathy, thyromegaly Respiratory exam: PRESENT: clear to auscultation khang Cardiovascular exam: PRESENT: RRR. ABSENT: diastolic murmur, rubs, systolic murmur Pulses: PRESENT: normal dorsalis pedis pul, +2 pedal pulses bilateral Vascular exam: PRESENT: normal capillary refill GI/Abdominal exam: PRESENT: normal bowel sounds, soft. ABSENT: distended, guarding, mass, organolmegaly, rebound, tenderness Rectal exam: PRESENT: deferred Neurological exam: PRESENT: alert, awake, oriented to person, oriented to place, oriented to time, oriented to situation, CN II-XII grossly intact. ABSENT: motor sensory deficit Psychiatric exam: PRESENT: appropriate affect, normal mood. ABSENT: homicidal ideation, suicidal ideation Skin exam: PRESENT: dry, intact, warm. ABSENT: cyanosis, rash Results Laboratory Results: 04/16/20 23:15 04/16/20 23:15 04/16/20 04/16/20 04/16/20 23:15 23:15 23:15 WBC 7.8 RBC 5.83 H Hgb 15.8 Hct 47.4 MCV 81 MCH 27.2 MCHC 33.4 RDW 15.5 H Plt Count 203 Seg Neutrophils % 71.3 VBG pH VBG pCO2 VBG HCO3 VBG Base Excess Sodium 135.9 L Potassium 4.2 Chloride 105 Carbon Dioxide 20 L Anion Gap 11 BUN 20 Creatinine 1.39 H Est GFR ( Amer) > 60 Glucose 115 H Lactic Acid 1.4 Calcium 9.3 Total Bilirubin 1.1 AST 107 H Alkaline Phosphatase 69 Total Protein 8.5 H Albumin 4.1 04/16/20 23:20 WBC RBC Hgb Hct MCV MCH MCHC RDW Plt Count Seg Neutrophils % VBG pH 7.30 VBG pCO2 40.8 VBG HCO3 19.7 L VBG Base Excess -6.3 Sodium Potassium Chloride Carbon Dioxide Anion Gap BUN Creatinine Est GFR ( Amer) Glucose Lactic Acid Calcium Total Bilirubin AST Alkaline Phosphatase Total Protein Albumin 04/16/20 23:15 Troponin I 0.031 Impressions: Chest X-Ray 04/16/20 22:52 IMPRESSION: Bilateral pneumonia. Assessment & Plan - Diagnosis (1) COVID-19 Is this a current diagnosis for this admission?: Yes Plan: Start the patient on a Covid protocol (2) Bilateral pneumonia Qualifiers: Pneumonia type: due to unspecified organism Is this a current diagnosis for this admission?: Yes Plan: Likely a Covid pneumonia we will get the CT angiogram Start the patient on dexamethasone IV antibiotic (3) Hypertension Qualifiers: Hypertension type: essential hypertension Qualified Code(s): I10 - Essential (primary) hypertension Is this a current diagnosis for this admission?: Yes Plan: are stable (4) Coronary artery disease Qualifiers: Coronary Disease-Associated Artery/Lesion type: unspecified vessel or lesion type Associated angina: without angina Is this a current diagnosis for this admission?: Yes Plan: e KG all normal sinus rhythm no acute change currently denies any complaints (5) Hyperlipidemia Qualifiers: Hyperlipidemia type: unspecified Qualified Code(s): E78.5 - Hyperlipidemia, unspecified Is this a current diagnosis for this admission?: Yes (6) Asthma Qualifiers: Asthma severity: moderate Is this a current diagnosis for this admission?: Yes Plan: Current medications with the nebulizer treatments (7) Hypoxia Is this a current diagnosis for this admission?: Yes Plan: Most likely due to the Covid we will get the CT angiogram - Time Time Spent: 50 to 70 Minutes Medications reviewed and adjusted accordingly: Yes Anticipated Discharge Disposition: Home, Self Care Anticipated Discharge Timeframe: within 72 hours - Inpatient Certification Based on my medical assessment, after consideration of the patient's comorbidities, presenting symptoms, or acuity I expect that the services needed warrant INPATIENT care.: Yes I certify that my determination is in accordance with my understanding of Medicare's requirements for reasonable and necessary INPATIENT services [42 CFR 412.3e].: Yes Medical Necessity: Significant Comorbidiites Make Outpatient Treatment Too Risky, Need Close Monitoring Due to Risk of Patient Decompensation, Need for IV Antibiotics Post Hospital Care: D/C 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
[2020-04-17] MEDS: CHOLECALCIFEROL (D3) 1,000 UNIT (25 MCG) TABLET PO SCH (11:26)
[2020-04-17] MEDS: ZINC SULFATE 220 MG CAPSULE PO SCH (11:26)
[2020-04-17] MEDS: DEXAMETHASONE SOD PHOS INJ 10 MG/1 ML VIAL IV SCH (11:26)
[2020-04-17] MEDS: ASCORBIC ACID 500 MG TABLET PO SCH ×2 (11:26→18:39)
[2020-04-17] MEDS: FAMOTIDINE 20 MG TABLET PO SCH ×2 (11:27→21:40)
[2020-04-17] MEDS: AZITHROMYCIN 250 MG TABLET PO SCH (11:27)
[2020-04-17] MEDS: ASPIRIN 81 MG TABLET, ENT COATED PO SCH (11:27)
[2020-04-17] MEDS ORDERED: REMDESIVIR 200 MG in NORMAL SALINE 250 ML IV ONE (14:00)
[2020-04-17] MEDS ORDERED: DEXTROSE 50%-WATER 25 GM/50 ML DISP.SYRIN IV PRN ×2 (14:21)
[2020-04-17] MEDS ORDERED: GLUCAGON,HUMAN RECOMB 1 MG INJ IM PRN (14:21)
[2020-04-17] MEDS ORDERED: DEXTROSE 40% GEL 15 GM TUBE PO PRN ×2 (14:21)
--- NOTE | 2020-04-17 15:53 | RADIOLOGY REPORT (SQ) ---
EXAM DESCRIPTION: CTA CHEST IMAGES COMPLETED DATE/TIME: 04/17/2020 11:44 am REASON FOR STUDY: COVID PNA COMPARISON: CT chest, 02/21/2018. Chest radiograph 04/16/2020 TECHNIQUE: CT scan of the chest performed using helical scanning technique with dynamic intravenous contrast injection. Images reviewed with lung, soft tissue and bone windows. Reconstructed coronal and sagittal MPR images reviewed. Additional 3 dimensional post-processing performed to develop Maximal Intensity Projection images (NC P). All images stored on PACS. All CT scanners at this facility use dose modulation, iterative reconstruction, and/or weight based d osing when appropriate to reduce radiation dose to as low as reasonably achievable (ALARA). [facility]: Dose Right [facility]: CareDose [facility]: Dose Right [facility]: Teradose 4D [facility]: [employer] CONTRAST TYPE AND DOSE: contrast/concentration: Isovue 350.00 mmol/ml; Total Contrast Delivered: 75. 0 ml; Total Saline Delivered: 48.0 ml Contrast bolus not optimized for the pulmonary arteries. RENAL FUNCTION: GFR 58 today RADIATION DOSE: CT Rad equipment meets quality standard of care and radiation dose reduction techniq ues were employed. CTDIvol: 19.8 - 36.1 mGy. DLP: 1255 mGy-cm. . LIMITATIONS: Respiratory motion obscures detail. FINDINGS: LUNGS AND PLEURA: Trachea has normal caliber and appearance. There is diffuse confluent g round-glass attenuation in both lungs. No pleural effusion or pneumothorax. AORTA AND GREAT VESSELS: No aneurysm. No evidence of aortic dissection. HEART: No pericardial effusion. No significant coronary artery calcifications. PULMONARY ARTERIES: There is poor opacification of the pulmonary arteries and respiratory motion whic h obscures detail. No large central pulmonary embolism. The lobar, segmental and subsegmental pulmo nary arteries are poorly evaluated due to motion and phase of contrast timing. HILAR AND MEDIASTINAL STRUCTURES: No identified masses or abnormal nodes. HARDWARE: None in the chest. UPPER ABDOMEN: Mild hepatic steatosis. THYROID AND OTHER SOFT TISSUES: No masses. No adenopathy. BONES: No acute or significant finding. 3D MIPS: Confirm above findings. OTHER: No other significant finding. IMPRESSION: 1. Respiratory motion obscures detail. No large central pulmonary embolism. Cannot exclude a lobar, segmental or subsegmental pulmonary embolism due to respiratory motion and phase of contrast timing. 2. Multifocal ground-glass attenuation in both lungs consistent with multifocal pneumonia. Commonly reported imaging features of COVID-19 pneumonia are present. Other processes such as influenza pneum onia and organizing pneumonia, as can be seen with drug toxicity and connective tissue disease, can c ause a similar imaging pattern. [facility] COMMENT: Quality ID # [id number]: Final reports with documentation of one or more dose reduction techniques (e.g., Automated exposure control, adjustment of the mA and/or kV according to patient size, use of iterative reconstruction technique) TECHNICAL DOCUMENTATION: JOB ID: [id number] 2010 [employer]- All Rights Reserved Reading location - IP/workstation name: [email or web address]
[2020-04-17] MEDS: INSULIN LISPRO 100 UNIT/ML 3 ML VIAL SUBCUT SCH ×2 (17:17→21:16)
[2020-04-17] MEDS: ENOXAPARIN SODIUM INJ 40 MG/0.4 ML DISP.SYRIN SUBCUT SCH (18:39)
--- NOTE | 2020-04-17 22:35 | EKG REPORT ---
SEVERITY:- ABNORMAL ECG - SINUS RHYTHM LEFT VENTRICULAR HYPERTROPHY INFERIOR INFARCT, AGE INDETERMINATE : Confirmed by: Frieda Bates 17-Apr-2020 22:34:25
[2020-04-18] MEDS: ALBUTEROL SULFATE 0.083% NEB 2.5 MG/3 ML AMPUL NEB SCH ×4 (02:09→20:50)
[2020-04-18 05:20] LABS: ABSOLUTE LYMPHOCYTES (AUTO) 0.8 10^3/uL (0.5-4.7); ABSOLUTE MONOCYTES (AUTO) 0.7 10^3/uL (0.1-1.4); ABSOLUTE NEUT (AUTO) 4.2 10^3/uL (1.7-8.2); BASOPHILS % (AUTO) 0.1 % (0-2); HEMATOCRIT 44.2 % (37.9-51.0); HEMOGLOBIN 14.6 g/dL (13.5-17.0); LYMPHOCYTES % (AUTO) 14.1 % (13-45); MEAN CORPUSCULAR HEMOGLOBIN 26.5 pg (27.0-33.4); MEAN CORPUSCULAR HGB CONC 33.1 g/dL (32.0-36.0); MEAN CORPUSCULAR VOLUME 80 fl (80-97); MONOCYTES % (AUTO) 12.8 % (3-13); PLATELET COUNT 224 10^3/uL (150-450); RED BLOOD COUNT 5.52 10^6/uL (4.35-5.55); RED CELL DISTRIBUTION WIDTH 15.3 % (11.5-14.0); TOTAL CELLS COUNTED % (AUTO) 100 %; WHITE BLOOD COUNT 5.7 10^3/uL (4.0-10.5)
[2020-04-18] MEDS ORDERED: ENOXAPARIN SODIUM INJ 100 MG/1 ML DISP.SYRIN SUBCUT ONE (05:34)
[2020-04-18] MEDS: ENOXAPARIN SODIUM INJ 40 MG/0.4 ML DISP.SYRIN SUBCUT SCH (05:37)
[2020-04-18 05:45] LABS: ALBUMIN 3.3 g/dL (3.5-5.0); ALKALINE PHOSPHATASE 66 U/L (38-126); ANION GAP 13 (5-19); ASPARTATE AMINO TRANSFERASE 86 U/L (17-59); BILIRUBIN,DIRECT 0.6 mg/dL (0.0-0.4); BILIRUBIN,TOTAL 0.9 mg/dL (0.2-1.3); BLOOD UREA NITROGEN 25 mg/dL (7-20); CALCIUM 8.9 mg/dL (8.4-10.2); CARBON DIOXIDE 17 mmol/L (22-30); CHLORIDE 110 mmol/L (98-107); GLUCOSE 119 mg/dL (75-110); POTASSIUM 4.1 mmol/L (3.6-5.0)
[2020-04-18 05:59] LABS: C-REACTIVE PROTEIN 231.3 mg/L (<10.0)
[2020-04-18] MEDS: INSULIN LISPRO 100 UNIT/ML 3 ML VIAL SUBCUT SCH ×4 (08:41→21:32)
[2020-04-18] MEDS: AZITHROMYCIN 250 MG TABLET PO SCH (10:03)
[2020-04-18] MEDS: REMDESIVIR 100 MG in NORMAL SALINE 250 ML IV SCH (10:03)
[2020-04-18] MEDS: ZINC SULFATE 220 MG CAPSULE PO SCH (10:04)
[2020-04-18] MEDS: DEXAMETHASONE SOD PHOS INJ 10 MG/1 ML VIAL IV SCH ×2 (10:04→19:52)
[2020-04-18] MEDS: FAMOTIDINE 20 MG TABLET PO SCH ×2 (10:04→21:46)
[2020-04-18] MEDS: ASCORBIC ACID 500 MG TABLET PO SCH ×2 (10:04→17:55)
[2020-04-18] MEDS: CHOLECALCIFEROL (D3) 1,000 UNIT (25 MCG) TABLET PO SCH (10:04)
[2020-04-18] MEDS: ASPIRIN 81 MG TABLET, ENT COATED PO SCH (10:04)
[2020-04-18] MEDS: ENOXAPARIN SODIUM INJ 100 MG/1 ML DISP.SYRIN SUBCUT SCH (17:54)
[2020-04-18] MEDS: AZITHROMYCIN 500 MG in DEXTROSE 5%-WATER 250 ML IV SCH (19:25)
[2020-04-18] MEDS: AZTREONAM 1 GM in DEXTROSE 5%-WATER 50 ML IV SCH (19:43)
--- NOTE | 2020-04-18 20:40 | PDOC PROGRESS REPORT ---
Subjective Date:: 04/18/20 Subjective:: Patient was admitted yesterday for Covid pneumonia, patient is well-known to me he has severe persistent asthma, when I saw him today he was obviously wheezing with retraction of intercostal muscles. He had a CT angiogram of the chest yesterday, this demonstrated diffuse confluent groundglass attenuation in both lungs no pleural effusion no pneumothorax there was no aneurysm there was no evidence of aortic dissection. There was poor opacification of the pulmonary arteries, no large central pulmonary embolism. The patient was multifocal groundglass attenuation in both lung field consistent with multifocal pneumonia. Reason For Visit: COVID Physical Exam Vital Signs: Temp Pulse Resp BP Pulse Ox 97.2 F 69 28 H 166/71 H 95 04/18/20 15:48 04/18/20 15:48 04/18/20 18:30 04/18/20 15:48 04/18/20 18:30 Intake & Output 04/17/20 04/18/20 04/19/20 06:59 06:59 06:59 Intake Total 472 630 250 Output Total 400 500 Balance 472 230 -250 Weight 99.9 kg 98.8 kg General appearance: PRESENT: obese, severe distress Eye exam: PRESENT: PERRLA Respiratory exam: PRESENT: wheezes Cardiovascular exam: PRESENT: +S1, +S2 GI/Abdominal exam: PRESENT: soft Neurological exam: PRESENT: alert, CN II-XII grossly intact Results Laboratory Results: 04/18/20 04:32 04/18/20 04:32 04/18/20 04/18/20 04:32 04:32 WBC 5.7 RBC 5.52 Hgb 14.6 Hct 44.2 MCV 80 MCH 26.5 L MCHC 33.1 RDW 15.3 H Plt Count 224 Seg Neutrophils % 73.0 Sodium 140.4 Potassium 4.1 Chloride 110 H Carbon Dioxide 17 L Anion Gap 13 BUN 25 H Creatinine 1.17 Est GFR ( Amer) > 60 Glucose 119 H Calcium 8.9 Ferritin 454.00 Total Bilirubin 0.9 AST 86 H Alkaline Phosphatase 66 C-Reactive Protein 231.3 H Total Protein 7.0 Albumin 3.3 L 04/17/20 00:46 Blood Blood Culture (PCR) - Final Staphylococcus Species 04/16/20 23:15 Troponin I 0.031 Impressions: Chest X-Ray 01/09/21 22:52 IMPRESSION: Bilateral pneumonia. Chest/Abdomen CTA 04/17/20 00:00 IMPRESSION: 1. Respiratory motion obscures detail. No large central pulmonary embolism. Cannot exclude a lobar, segmental or subsegmental pulmonary embolism due to respiratory motion and phase of contrast timing. 2. Multifocal ground-glass attenuation in both lungs consistent with multifocal pneumonia. Commonly reported imaging features of COVID-19 pneumonia are present. Other processes such as influenza pneumonia and organizing pneumonia, as can be seen with drug toxicity and connective tissue disease, can cause a similar imaging pattern. PneTyp Assessment & Plan - Diagnosis (1) Pneumonia due to COVID-19 virus Is this a current diagnosis for this admission?: Yes Plan: Patient with pneumonia due to SARS-CoV-2 infection, patient already on remdesivir, dexamethasone, (2) Severe persistent asthma Qualifiers: Asthma complication type: with acute exacerbation Qualified Code(s): J45.51 - Severe persistent asthma with (acute) exacerbation Is this a current diagnosis for this admission?: Yes Plan: Patient with underlining asthma, audibly wheezing, increase dexamethasone to 6 mg IV every 12 hours, change oxygen to high flow oxygen, DuoNeb every 3 hours on the schedule (3) Type 2 diabetes mellitus with diabetic polyneuropathy Qualifiers: Diabetes mellitus intermodal dispatcher insulin use: without intermodal dispatcher use Qualified Code(s): E11.42 - Type 2 diabetes mellitus with diabetic polyneuropathy Is this a current diagnosis for this admission?: Yes Plan: Continue Accu-Chek before every meal and at bedtime patient may need insulin drip if serum glucose becomes uncontrolled (4) Bilateral pneumonia Qualifiers: Pneumonia type: due to unspecified organism Lung location: unspecified part of lung Qualified Code(s): J18.9 - Pneumonia, unspecified organism Is this a current diagnosis for this admission?: Yes Plan: I cannot complete rule out bacterial pneumonia, start IV antibiotic - Time Time Spent with patient: 35 or more minutes Level of Care: IMCU Medications reviewed and adjusted accordingly: Yes Anticipated discharge: Home Anticipated DC Timeframe: within 72 hours - Inpatient Certification Based on my medical assessment, after consideration of the patient's comorbidities, presenting symptoms, or acuity I expect that the services needed warrant INPATIENT care.: Yes I certify that my determination is in accordance with my understanding of Medicare's requirements for reasonable and necessary INPATIENT services [42 CFR 412.3e].: Yes
[2020-04-18] MEDS: IPRATROPIUM/ALBUTEROL 0.5-2.5 MG/3 ML AMPUL NEB SCH ×2 (20:49→23:48)
[2020-04-19] MEDS: IPRATROPIUM/ALBUTEROL 0.5-2.5 MG/3 ML AMPUL NEB SCH ×7 (02:45→19:39)
[2020-04-19] MEDS: ALBUTEROL SULFATE 0.083% NEB 2.5 MG/3 ML AMPUL NEB SCH ×3 (02:45→14:36)
[2020-04-19 05:35] LABS: HEMATOCRIT 46.2 % (37.9-51.0); HEMOGLOBIN 15.5 g/dL (13.5-17.0); MEAN CORPUSCULAR HEMOGLOBIN 26.7 pg (27.0-33.4); MEAN CORPUSCULAR HGB CONC 33.6 g/dL (32.0-36.0); MEAN CORPUSCULAR VOLUME 80 fl (80-97); PLATELET COUNT 250 10^3/uL (150-450); WHITE BLOOD COUNT 7.3 10^3/uL (4.0-10.5)
[2020-04-19] MEDS: AZTREONAM 1 GM in DEXTROSE 5%-WATER 50 ML IV SCH ×3 (05:53→21:33)
[2020-04-19] MEDS: ENOXAPARIN SODIUM INJ 100 MG/1 ML DISP.SYRIN SUBCUT SCH (05:53)
[2020-04-19 05:55] LABS: ALBUMIN 3.3 g/dL (3.5-5.0); ALKALINE PHOSPHATASE 70 U/L (38-126); ANION GAP 12 (5-19); ASPARTATE AMINO TRANSFERASE 76 U/L (17-59); BILIRUBIN,DIRECT 0.4 mg/dL (0.0-0.4); BILIRUBIN,TOTAL 0.7 mg/dL (0.2-1.3); BLOOD UREA NITROGEN 29 mg/dL (7-20); C-REACTIVE PROTEIN 86.6 mg/L (<10.0); CALCIUM 8.9 mg/dL (8.4-10.2); CARBON DIOXIDE 20 mmol/L (22-30); CHLORIDE 109 mmol/L (98-107); GLUCOSE 129 mg/dL (75-110); POTASSIUM 4.1 mmol/L (3.6-5.0); TOTAL PROTEIN 6.7 g/dL (6.3-8.2)
[2020-04-19 06:29] LABS: ABSOLUTE LYMPHOCYTES# (MANUAL) 1.8 10^3/uL (0.5-4.7); ABSOLUTE MONOCYTES # (MANUAL) 0.7 10^3/uL (0.1-1.4); BAND NEUTROPHILS % (MANUAL) 1 % (3-5); BASOPHILS % (MANUAL) 0 % (0-2); EOSINOPHILS % (MANUAL) 0 % (0-6); LYMPHOCYTES % (MANUAL) 24 % (13-45); MONOCYTES % (MANUAL) 9 % (3-13); SEGMENTED NEUTROPHILS % (MAN) 66 % (42-78); TOTAL CELLS COUNTED 100
[2020-04-19 06:30] LABS: ANISOCYTOSIS SLIGHT; POLYCHROMASIA SLIGHT
[2020-04-19 06:31] LABS: PLATELET COMMENT ADEQUATE
[2020-04-19 08:29] LABS: INTERNATIONAL RATION (INR) 1.21; PROTHROMBIN TIME 15.5 SEC (11.4-15.4)
[2020-04-19 08:34] LABS: FIBRINOGEN 874 mg/dL (209-497)
[2020-04-19] MEDS: INSULIN LISPRO 100 UNIT/ML 3 ML VIAL SUBCUT SCH ×4 (08:45→21:30)
[2020-04-19] MEDS: ZINC SULFATE 220 MG CAPSULE PO SCH (09:54)
[2020-04-19] MEDS: CHOLECALCIFEROL (D3) 1,000 UNIT (25 MCG) TABLET PO SCH (09:55)
[2020-04-19] MEDS: ASCORBIC ACID 500 MG TABLET PO SCH ×2 (09:55→17:26)
[2020-04-19] MEDS: AZITHROMYCIN 250 MG TABLET PO SCH (09:55)
[2020-04-19] MEDS: FAMOTIDINE 20 MG TABLET PO SCH ×2 (09:55→21:32)
[2020-04-19] MEDS: ASPIRIN 81 MG TABLET, ENT COATED PO SCH (09:55)
[2020-04-19] MEDS: DEXAMETHASONE SOD PHOS INJ 10 MG/1 ML VIAL IV SCH ×2 (09:56→21:33)
[2020-04-19] MEDS: REMDESIVIR 100 MG in NORMAL SALINE 250 ML IV SCH (10:25)
[2020-04-19] MEDS: AZITHROMYCIN 500 MG in DEXTROSE 5%-WATER 250 ML IV SCH (12:23)
[2020-04-19] MEDS ORDERED: EMPAGLIFLOZIN 25 MG PO SCH (12:30)
[2020-04-19] MEDS ORDERED: (PENDING PHARMACY ID) (Budesonide/Formoterol Fumarate 60 PUFF/6 GM Inhaler) IH SCH (12:30)
[2020-04-19] MEDS ORDERED: (PENDING PHARMACY ID) (Omeprazole [Omeprazole] 20 MG Capsule.Dr) PO SCH (12:30)
--- NOTE | 2020-04-19 13:32 | RADIOLOGY REPORT (SQ) ---
EXAM DESCRIPTION: CHEST SINGLE VIEW IMAGES COMPLETED DATE/TIME: 04/19/2020 12:50 pm REASON FOR STUDY: pneumonia COMPARISON: 04/16/2020 EXAM PARAMETERS: NUMBER OF VIEWS: One view. TECHNIQUE: Single frontal radiographic view of the chest acquired. RADIATION DOSE: NA LIMITATIONS: None. FINDINGS: LUNGS AND PLEURA: Stable, persistent appearance of multifocal airspace opacities. No pleu ral effusion. No pneumothorax. MEDIASTINUM AND HILAR STRUCTURES: No masses. Contour normal. HEART AND VASCULAR STRUCTURES: Heart normal in size. Normal vasculature. BONES: No acute findings. HARDWARE: None in the chest. OTHER: No other significant finding. IMPRESSION: Stable pulmonary exam demonstrating multifocal airspace opacities. TECHNICAL DOCUMENTATION: JOB ID: [id number] 2010 [employer] All Rights Reserved Reading location - IP/workstation name: [email or web address]
[2020-04-19] MEDS: ENOXAPARIN SODIUM INJ 40 MG/0.4 ML DISP.SYRIN SUBCUT SCH (14:06)
[2020-04-19] MEDS: MONTELUKAST SODIUM 10 MG TABLET PO SCH (14:06)
[2020-04-19] MEDS: ALLOPURINOL 300 MG TABLET PO SCH (14:06)
[2020-04-19] MEDS: CLOPIDOGREL BISULFATE 75 MG TABLET PO SCH (14:06)
[2020-04-19] MEDS: PANTOPRAZOLE SODIUM 20 MG TABLET.DR PO SCH (14:06)
[2020-04-19] MEDS: SERTRALINE HCL 50 MG TABLET PO SCH (14:06)
[2020-04-19] MEDS: LEVOTHYROXINE SODIUM 0.112 MG TABLET PO SCH (14:10)
[2020-04-19] MEDS: FLUTICASONE/VILANTEROL 200-25 MCG/DOSE IH SCH (15:18)
[2020-04-19] MEDS: METFORMIN HCL 500 MG TABLET PO SCH (16:27)
[2020-04-19] MEDS: SIMVASTATIN 10 MG TABLET PO SCH (17:26)
[2020-04-19] MEDS ORDERED: METFORMIN HCL 1000 MG PO SCH (18:00)
[2020-04-19] MEDS ORDERED: SIMVASTATIN 20 MG PO SCH (18:00)
--- NOTE | 2020-04-19 21:27 | PDOC PROGRESS REPORT ---
Subjective Date:: 04/19/20 Subjective:: Patient seen by the bedside, he is not as distressed as he was yesterday, presen tly on high flow oxygen, IV dexamethasone every 12 hours remdesivir, DuoNeb nebulizer Reason For Visit: COVID Physical Exam Vital Signs: Temp Pulse Resp BP Pulse Ox 98.2 F 60 24 H 143/68 H 97 04/19/20 15:59 04/19/20 19:39 04/19/20 19:39 04/19/20 15:59 04/19/20 19:39 Intake & Output 04/18/20 04/19/20 04/20/20 06:59 06:59 06:59 Intake Total 016 452 5584 Output Total 400 850 775 Balance 230 -350 305 Weight 98.8 kg 98.1 kg General appearance: PRESENT: other - Patient is alert on high flow oxygen nasal cannula Eye exam: PRESENT: PERRLA Respiratory exam: PRESENT: wheezes Cardiovascular exam: PRESENT: +S1, +S2 GI/Abdominal exam: PRESENT: soft Neurological exam: PRESENT: alert Results Laboratory Results: 04/19/20 04:35 04/19/20 04:38 04/19/20 04/19/20 04:35 04:38 WBC 7.3 RBC 5.80 H Hgb 15.5 Hct 46.2 MCV 80 MCH 26.7 L MCHC 33.6 RDW 15.0 H Plt Count 250 Seg Neutrophils % Not Reportable Sodium 141.2 Potassium 4.1 Chloride 109 H Carbon Dioxide 20 L Anion Gap 12 BUN 29 H Creatinine 1.03 Est GFR ( Amer) > 60 Glucose 129 H Calcium 8.9 Ferritin 425.00 Total Bilirubin 0.7 AST 76 H Alkaline Phosphatase 70 C-Reactive Protein 86.6 H Total Protein 6.7 Albumin 3.3 L 04/17/20 00:46 Blood Blood Culture (PCR) - Final Staphylococcus Species 04/16/20 23:15 Troponin I 0.031 Impressions: Chest/Abdomen CTA 04/17/20 00:00 IMPRESSION: 1. Respiratory motion obscures detail. No large central pulmonary embolism. Cannot exclude a lobar, segmental or subsegmental pulmonary embolism due to respiratory motion and phase of contrast timing. 2. Multifocal ground-glass attenuation in both lungs consistent with multifocal pneumonia. Commonly reported imaging features of COVID-19 pneumonia are present. Other processes such as influenza pneumonia and organizing pneumonia, as can be seen with drug toxicity and connective tissue disease, can cause a similar imaging pattern. PneTyp Chest X-Ray 04/19/20 00:00 IMPRESSION: Stable pulmonary exam demonstrating multifocal airspace opacities. Assessment & Plan - Diagnosis (1) Pneumonia due to COVID-19 virus Is this a current diagnosis for this admission?: Yes Plan: Patient with pneumonia due to SARS-CoV-2 infection, patient to continue remdesivir, dexamethasone, (2) Severe persistent asthma Qualifiers: Asthma complication type: with acute exacerbation Qualified Code(s): J45.51 - Severe persistent asthma with (acute) exacerbation Is this a current diagnosis for this admission?: Yes Plan: He will continue dexamethasone, DuoNeb high flow oxygen (3) Type 2 diabetes mellitus with diabetic polyneuropathy Qualifiers: Diabetes mellitus jail insulin use: without keno terminal operator use Qualified Code(s): E11.42 - Type 2 diabetes mellitus with diabetic polyneuropathy Is this a current diagnosis for this admission?: Yes Plan: Continue Accu-Chek before every meal and at bedtime patient may need insulin drip if serum glucose becomes uncontrolled (4) Bilateral pneumonia Qualifiers: Pneumonia type: due to unspecified organism Lung location: unspecified part of lung Qualified Code(s): J18.9 - Pneumonia, unspecified organism Is this a current diagnosis for this admission?: Yes Plan: I cannot complete rule out bacterial pneumonia, Continue IV antibiotic - Time Time Spent with patient: 35 or more minutes Level of Care: IMCU Medications reviewed and adjusted accordingly: Yes Anticipated discharge: Home Anticipated DC Timeframe: Other - Inpatient Certification Based on my medical assessment, after consideration of the patient's comorbidities, presenting symptoms, or acuity I expect that the services needed warrant INPATIENT care.: Yes I certify that my determination is in accordance with my understanding of Medicare's requirements for reasonable and necessary INPATIENT services [42 CFR 412.3e].: Yes
[2020-04-19] MEDS: TRAZODONE HCL 50 MG TABLET PO SCH (21:32)
[2020-04-19] MEDS: DONEPEZIL HCL 5 MG TABLET PO SCH (21:32)
[2020-04-19] MEDS ORDERED: TRAZODONE HCL 100 MG PO SCH (22:00)
[2020-04-19] MEDS: ACETAMINOPHEN 325 MG TABLET PO PRN (23:03)
[2020-04-20] MEDS: IPRATROPIUM/ALBUTEROL 0.5-2.5 MG/3 ML AMPUL NEB SCH ×6 (00:28→20:29)
[2020-04-20 04:59] LABS: HEMATOCRIT 43.4 % (37.9-51.0); HEMOGLOBIN 14.7 g/dL (13.5-17.0); MEAN CORPUSCULAR HEMOGLOBIN 27.1 pg (27.0-33.4); MEAN CORPUSCULAR HGB CONC 33.8 g/dL (32.0-36.0); MEAN CORPUSCULAR VOLUME 80 fl (80-97); PLATELET COUNT 285 10^3/uL (150-450); RED BLOOD COUNT 5.41 10^6/uL (4.35-5.55); RED CELL DISTRIBUTION WIDTH 15.4 % (11.5-14.0); WHITE BLOOD COUNT 8.7 10^3/uL (4.0-10.5)
[2020-04-20] MEDS: LEVOTHYROXINE SODIUM 0.112 MG TABLET PO SCH (05:19)
[2020-04-20] MEDS: AZTREONAM 1 GM in DEXTROSE 5%-WATER 50 ML IV SCH ×3 (05:19→22:55)
[2020-04-20 05:35] LABS: ALKALINE PHOSPHATASE 62 U/L (38-126); ANION GAP 9 (5-19); ASPARTATE AMINO TRANSFERASE 64 U/L (17-59); BILIRUBIN,DIRECT 0.4 mg/dL (0.0-0.4); BILIRUBIN,TOTAL 0.8 mg/dL (0.2-1.3); BLOOD UREA NITROGEN 31 mg/dL (7-20); C-REACTIVE PROTEIN 66.2 mg/L (<10.0); CALCIUM 8.5 mg/dL (8.4-10.2); CARBON DIOXIDE 19 mmol/L (22-30); CHLORIDE 109 mmol/L (98-107); GLUCOSE 146 mg/dL (75-110); POTASSIUM 4.5 mmol/L (3.6-5.0); TOTAL PROTEIN 6.6 g/dL (6.3-8.2)
[2020-04-20 05:54] LABS: ABSOLUTE LYMPHOCYTES# (MANUAL) 0.7 10^3/uL (0.5-4.7); ABSOLUTE MONOCYTES # (MANUAL) 0.1 10^3/uL (0.1-1.4); BAND NEUTROPHILS % (MANUAL) 1 % (3-5); BASOPHILS % (MANUAL) 0 % (0-2); EOSINOPHILS % (MANUAL) 0 % (0-6); LYMPHOCYTES % (MANUAL) 8 % (13-45); MONOCYTES % (MANUAL) 1 % (3-13); SEGMENTED NEUTROPHILS % (MAN) 90 % (42-78); TOTAL CELLS COUNTED 100
[2020-04-20 05:55] LABS: ANISOCYTOSIS SLIGHT; PLATELET COMMENT ADEQUATE; TOXIC VACUOLATION PRESENT
[2020-04-20] MEDS: ACETAMINOPHEN 325 MG TABLET PO PRN ×2 (06:33→23:38)
[2020-04-20] MEDS: INSULIN LISPRO 100 UNIT/ML 3 ML VIAL SUBCUT SCH ×4 (07:45→22:44)
[2020-04-20] MEDS: PANTOPRAZOLE SODIUM 20 MG TABLET.DR PO SCH (07:48)
[2020-04-20] MEDS: METFORMIN HCL 500 MG TABLET PO SCH ×2 (07:48→16:43)
[2020-04-20] MEDS: AZITHROMYCIN 250 MG TABLET PO SCH (09:45)
[2020-04-20] MEDS: ENOXAPARIN SODIUM INJ 40 MG/0.4 ML DISP.SYRIN SUBCUT SCH (09:45)
[2020-04-20] MEDS: MONTELUKAST SODIUM 10 MG TABLET PO SCH (09:45)
[2020-04-20] MEDS: CLOPIDOGREL BISULFATE 75 MG TABLET PO SCH (09:46)
[2020-04-20] MEDS: FAMOTIDINE 20 MG TABLET PO SCH ×2 (09:46→22:48)
[2020-04-20] MEDS: ASPIRIN 81 MG TABLET, ENT COATED PO SCH (09:46)
[2020-04-20] MEDS: ASCORBIC ACID 500 MG TABLET PO SCH ×2 (09:46→17:03)
[2020-04-20] MEDS: SERTRALINE HCL 50 MG TABLET PO SCH (09:46)
[2020-04-20] MEDS: CHOLECALCIFEROL (D3) 1,000 UNIT (25 MCG) TABLET PO SCH (09:46)
[2020-04-20] MEDS: ZINC SULFATE 220 MG CAPSULE PO SCH (09:46)
[2020-04-20] MEDS: REMDESIVIR 100 MG in NORMAL SALINE 250 ML IV SCH (09:46)
[2020-04-20] MEDS: ALLOPURINOL 300 MG TABLET PO SCH (09:46)
[2020-04-20] MEDS: DEXAMETHASONE SOD PHOS INJ 10 MG/1 ML VIAL IV SCH ×2 (09:47→22:48)
[2020-04-20] MEDS: FLUTICASONE/VILANTEROL 200-25 MCG/DOSE IH SCH (09:47)
[2020-04-20] MEDS: AZITHROMYCIN 500 MG in DEXTROSE 5%-WATER 250 ML IV SCH (10:41)
--- NOTE | 2020-04-20 15:30 | PDOC PROGRESS REPORT ---
Subjective Date:: 04/20/20 Subjective:: Patient seen by the bedside, he continues to require oxygen maximizer Reason For Visit: COVID Physical Exam Vital Signs: Temp Pulse Resp BP Pulse Ox 97.4 F 91 16 145/73 H 100 04/20/20 11:51 04/20/20 14:00 04/20/20 12:08 04/20/20 11:51 04/20/20 12:08 Intake & Output 04/19/20 04/20/20 04/21/20 06:59 06:59 06:59 Intake Total 500 1400 500 Output Total 850 925 Balance -350 475 500 Weight 98.1 kg 98.6 kg General appearance: PRESENT: mild distress Eye exam: PRESENT: PERRLA Respiratory exam: PRESENT: crackles Cardiovascular exam: PRESENT: +S1, +S2 GI/Abdominal exam: PRESENT: soft Neurological exam: PRESENT: alert, CN II-XII grossly intact Results Laboratory Results: 04/20/20 04:19 04/20/20 04:19 04/20/20 04/20/20 04:19 04:19 WBC 8.7 RBC 5.41 Hgb 14.7 Hct 43.4 MCV 80 MCH 27.1 MCHC 33.8 RDW 15.4 H Plt Count 285 Seg Neutrophils % Not Reportable Sodium 136.8 L Potassium 4.5 Chloride 109 H Carbon Dioxide 19 L Anion Gap 9 BUN 31 H Creatinine 0.90 Est GFR ( Amer) > 60 Glucose 146 H Calcium 8.5 Ferritin 372.00 Total Bilirubin 0.8 AST 64 H Alkaline Phosphatase 62 C-Reactive Protein 66.2 H Total Protein 6.6 Albumin 3.0 L 04/17/20 00:46 Blood Blood Culture (PCR) - Final Staphylococcus Species 04/17/20 00:46 Blood Blood Culture - Final Staphylococcus Hominis 04/16/20 23:15 Troponin I 0.031 Impressions: Chest/Abdomen CTA 04/17/20 00:00 IMPRESSION: 1. Respiratory motion obscures detail. No large central pulmonary embolism. Cannot exclude a lobar, segmental or subsegmental pulmonary embolism due to respiratory motion and phase of contrast timing. 2. Multifocal ground-glass attenuation in both lungs consistent with multifocal pneumonia. Commonly reported imaging features of COVID-19 pneumonia are present. Other processes such as influenza pneumonia and organizing pneumonia, as can be seen with drug toxicity and connective tissue disease, can cause a similar imaging pattern. [facility] 04/19/20 00:00 IMPRESSION: Stable pulmonary exam demonstrating multifocal airspace opacities. Assessment & Plan - Diagnosis (1) Pneumonia due to COVID-19 virus Is this a current diagnosis for this admission?: Yes Plan: Patient with pneumonia due to SARS-CoV-2 infection, patient to continue remdesivir, dexamethasone, (2) Severe persistent asthma Qualifiers: Asthma complication type: with acute exacerbation Qualified Code(s): J45.51 - Severe persistent asthma with (acute) exacerbation Is this a current diagnosis for this admission?: Yes Plan: He will continue dexamethasone, DuoNeb high flow oxygen (3) Type 2 diabetes mellitus with diabetic polyneuropathy Qualifiers: Diabetes mellitus skilled nursing insulin use: without local intermodal truck driver use Qualified Code(s): E11.42 - Type 2 diabetes mellitus with diabetic polyneuropathy Is this a current diagnosis for this admission?: Yes Plan: Continue Accu-Chek before every meal and at bedtime patient may need insulin drip if serum glucose becomes uncontrolled (4) Bilateral pneumonia Qualifiers: Pneumonia type: due to unspecified organism Lung location: unspecified part of lung Qualified Code(s): J18.9 - Pneumonia, unspecified organism Is this a current diagnosis for this admission?: Yes Plan: I cannot complete rule out bacterial pneumonia, Continue IV antibiotic - Time Time Spent with patient: 35 or more minutes Level of Care: IMCU Medications reviewed and adjusted accordingly: Yes Anticipated discharge: Home - Inpatient Certification Based on my medical assessment, after consideration of the patient's comorbidities, presenting symptoms, or acuity I expect that the services needed warrant INPATIENT care.: Yes I certify that my determination is in accordance with my understanding of Medicare's requirements for reasonable and necessary INPATIENT services [42 CFR 412.3e].: Yes
--- NOTE | 2020-04-20 16:37 | RADIOLOGY REPORT (SQ) ---
EXAM DESCRIPTION: CHEST SINGLE VIEW IMAGES COMPLETED DATE/TIME: 04/20/2020 4:23 pm REASON FOR STUDY: pneumonia COMPARISON: Previous day NUMBER OF VIEWS: One view. TECHNIQUE: Single frontal radiographic image of the chest acquired. LIMITATIONS: None. FINDINGS: LUNGS AND PLEURA: Bilateral airspace disease slightly more conspicuous compared to the renetta or. No evidence of cavitation. No large effusions. MEDIASTINUM AND HEART: Stable heart size and mediastinal structures. BONY STRUCTURES: No acute findings. HARDWARE: None. OTHER: No other significant finding. IMPRESSION: Rehydration versus progressing pneumonia. TECHNICAL DOCUMENTATION: JOB ID: [id number] Reading location - IP/workstation name: [email or web address]
[2020-04-20] MEDS: SIMVASTATIN 10 MG TABLET PO SCH (17:03)
[2020-04-20] MEDS ORDERED: FUROSEMIDE INJ/PF 40 MG/4 ML SDV IV ONE (20:45)
[2020-04-20] MEDS: TRAZODONE HCL 50 MG TABLET PO SCH (22:48)
[2020-04-20] MEDS: DONEPEZIL HCL 5 MG TABLET PO SCH (22:48)
[2020-04-21] MEDS: IPRATROPIUM/ALBUTEROL 0.5-2.5 MG/3 ML AMPUL NEB SCH ×7 (00:57→23:26)
[2020-04-21 05:16] LABS: HEMATOCRIT 43.7 % (37.9-51.0); HEMOGLOBIN 14.6 g/dL (13.5-17.0); MEAN CORPUSCULAR HEMOGLOBIN 26.7 pg (27.0-33.4); MEAN CORPUSCULAR HGB CONC 33.5 g/dL (32.0-36.0); MEAN CORPUSCULAR VOLUME 80 fl (80-97); RED BLOOD COUNT 5.47 10^6/uL (4.35-5.55); RED CELL DISTRIBUTION WIDTH 14.9 % (11.5-14.0); WHITE BLOOD COUNT 9.2 10^3/uL (4.0-10.5)
[2020-04-21 05:31] LABS: ALKALINE PHOSPHATASE 66 U/L (38-126); ANION GAP 10 (5-19); ASPARTATE AMINO TRANSFERASE 50 U/L (17-59); BILIRUBIN,DIRECT 0.4 mg/dL (0.0-0.4); BILIRUBIN,TOTAL 0.8 mg/dL (0.2-1.3); BLOOD UREA NITROGEN 31 mg/dL (7-20); CALCIUM 8.5 mg/dL (8.4-10.2); CARBON DIOXIDE 21 mmol/L (22-30); CHLORIDE 107 mmol/L (98-107); GLUCOSE 155 mg/dL (75-110); POTASSIUM 4.2 mmol/L (3.6-5.0); TOTAL PROTEIN 6.6 g/dL (6.3-8.2)
[2020-04-21 05:46] LABS: C-REACTIVE PROTEIN 180.2 mg/L (<10.0)
[2020-04-21 05:53] LABS: ABSOLUTE LYMPHOCYTES# (MANUAL) 1.2 10^3/uL (0.5-4.7); ABSOLUTE MONOCYTES # (MANUAL) 0.3 10^3/uL (0.1-1.4); BASOPHILS % (MANUAL) 0 % (0-2); EOSINOPHILS % (MANUAL) 0 % (0-6); LYMPHOCYTES % (MANUAL) 13 % (13-45); MONOCYTES % (MANUAL) 3 % (3-13); SEGMENTED NEUTROPHILS % (MAN) 84 % (42-78); TOTAL CELLS COUNTED 100
[2020-04-21 05:54] LABS: ANISOCYTOSIS SLIGHT; PLATELET CLUMPS PRESENT; PLATELET COMMENT ADEQUATE; PLATELET COUNT 299 10^3/uL (150-450)
[2020-04-21] MEDS: AZTREONAM 1 GM in DEXTROSE 5%-WATER 50 ML IV SCH ×3 (05:54→21:39)
[2020-04-21] MEDS: LEVOTHYROXINE SODIUM 0.112 MG TABLET PO SCH (05:54)
[2020-04-21] MEDS: INSULIN LISPRO 100 UNIT/ML 3 ML VIAL SUBCUT SCH ×4 (07:30→21:38)
[2020-04-21] MEDS: PANTOPRAZOLE SODIUM 20 MG TABLET.DR PO SCH (07:39)
[2020-04-21] MEDS: METFORMIN HCL 500 MG TABLET PO SCH ×2 (07:39→17:10)
--- NOTE | 2020-04-21 08:59 | RADIOLOGY REPORT (SQ) ---
EXAM DESCRIPTION: CHEST SINGLE VIEW IMAGES COMPLETED DATE/TIME: 04/21/2020 8:50 am REASON FOR STUDY: pneumonia COMPARISON: 04/20/2020 EXAM PARAMETERS: NUMBER OF VIEWS: One view. TECHNIQUE: Single frontal radiographic view of the chest acquired. RADIATION DOSE: NA LIMITATIONS: None. FINDINGS: LUNGS AND PLEURA: Low lung volumes limits examination. Bilateral airspace disease in the lungs as on the prior study. No pneumothorax or pleural effusion. MEDIASTINUM AND HILAR STRUCTURES: Stable appearance. HEART AND VASCULAR STRUCTURES: Stable appearance. BONES: No acute findings. HARDWARE: None in the chest. OTHER: No other significant finding. IMPRESSION: 1. No significant interval changes since the prior study dated 04/20/2020. Bilateral ai rspace disease is again noted. TECHNICAL DOCUMENTATION: JOB ID: [id number] 2010 [employer]- All Rights Reserved Reading location - IP/workstation name: [email or web address]
[2020-04-21] MEDS: DEXAMETHASONE SOD PHOS INJ 10 MG/1 ML VIAL IV SCH ×2 (10:00→21:39)
[2020-04-21] MEDS: ENOXAPARIN SODIUM INJ 40 MG/0.4 ML DISP.SYRIN SUBCUT SCH (10:00)
[2020-04-21] MEDS: CHOLECALCIFEROL (D3) 1,000 UNIT (25 MCG) TABLET PO SCH (10:00)
[2020-04-21] MEDS: SERTRALINE HCL 50 MG TABLET PO SCH (10:00)
[2020-04-21] MEDS: ZINC SULFATE 220 MG CAPSULE PO SCH (10:00)
[2020-04-21] MEDS: ASCORBIC ACID 500 MG TABLET PO SCH ×2 (10:00→17:10)
[2020-04-21] MEDS: REMDESIVIR 100 MG in NORMAL SALINE 250 ML IV SCH (10:00)
[2020-04-21] MEDS: ASPIRIN 81 MG TABLET, ENT COATED PO SCH (10:01)
[2020-04-21] MEDS: FAMOTIDINE 20 MG TABLET PO SCH ×2 (10:01→21:39)
[2020-04-21] MEDS: ALLOPURINOL 300 MG TABLET PO SCH (10:01)
[2020-04-21] MEDS: MONTELUKAST SODIUM 10 MG TABLET PO SCH (10:01)
[2020-04-21] MEDS: FLUTICASONE/VILANTEROL 200-25 MCG/DOSE IH SCH (10:01)
[2020-04-21] MEDS: CLOPIDOGREL BISULFATE 75 MG TABLET PO SCH (10:01)
[2020-04-21 10:32] LABS: FIBRINOGEN 814 mg/dL (209-497); INTERNATIONAL RATION (INR) 1.38; PROTHROMBIN TIME 17.1 SEC (11.4-15.4)
[2020-04-21] MEDS: AZITHROMYCIN 500 MG in DEXTROSE 5%-WATER 250 ML IV SCH (11:26)
[2020-04-21] MEDS: SIMVASTATIN 10 MG TABLET PO SCH (17:10)
[2020-04-21] MEDS: NORMAL SALINE 250 ML with FUROSEMIDE 250 MG IV PRN ×2 (18:20)
--- NOTE | 2020-04-21 19:56 | PDOC PROGRESS REPORT ---
Subjective Date:: 04/21/20 Subjective:: Patient seen by the bedside, he continues to require high flow oxygen, presently on the maximum dose. On auscultation of the chest there is diffuse crackles there is no definite wheeze suggesting possible fluid in his lung, he will be treated with low-dose Furosemide infusion.Patient's condition remains very precarious Reason For Visit: COVID Physical Exam Vital Signs: Temp Pulse Resp BP Pulse Ox 98.8 F 71 32 H 141/67 H 92 04/21/20 16:23 04/21/20 16:23 04/21/20 17:47 04/21/20 16:23 04/21/20 17:47 Intake & Output 04/20/20 04/21/20 04/22/20 06:59 06:59 06:59 Intake Total 1400 1160 1118 Output Total 925 700 600 Balance 475 460 518 Weight 98.6 kg 98.6 kg General appearance: PRESENT: obese, severe distress Eye exam: PRESENT: PERRLA Respiratory exam: PRESENT: crackles Cardiovascular exam: PRESENT: +S1, +S2 GI/Abdominal exam: PRESENT: soft Neurological exam: PRESENT: alert Results Laboratory Results: 04/21/20 04:32 04/21/20 04:32 04/21/20 04/21/20 04:32 04:32 WBC 9.2 RBC 5.47 Hgb 14.6 Hct 43.7 MCV 80 MCH 26.7 L MCHC 33.5 RDW 14.9 H Plt Count 299 Seg Neutrophils % Not Reportable Sodium 138.0 Potassium 4.2 Chloride 107 Carbon Dioxide 21 L Anion Gap 10 BUN 31 H Creatinine 1.12 Est GFR ( Amer) > 60 Glucose 155 H Calcium 8.5 Ferritin 362.00 Total Bilirubin 0.8 AST 50 Alkaline Phosphatase 66 C-Reactive Protein 180.2 H Total Protein 6.6 Albumin 3.0 L 04/16/20 23:15 Troponin I 0.031 Impressions: Chest/Abdomen CTA 04/17/20 00:00 IMPRESSION: 1. Respiratory motion obscures detail. No large central pulmonary embolism. Cannot exclude a lobar, segmental or subsegmental pulmonary embolism due to respiratory motion and phase of contrast timing. 2. Multifocal ground-glass attenuation in both lungs consistent with multifocal pneumonia. Commonly reported imaging features of COVID-19 pneumonia are present. Other processes such as influenza pneumonia and organizing pneumonia, as can be seen with drug toxicity and connective tissue disease, can cause a s imilar imaging pattern. PneTyp Chest X-Ray 04/21/20 00:00 IMPRESSION: 1. No significant interval changes since the prior study dated 04/20/2020. Bilateral airspace disease is again noted. Assessment & Plan - Diagnosis (1) Pneumonia due to COVID-19 virus Is this a current diagnosis for this admission?: Yes Plan: Patient with pneumonia due to SARS-CoV-2 infection, patient to continue remdesivir, dexamethasone, (2) Severe persistent asthma Qualifiers: Asthma complication type: with acute exacerbation Qualified Code(s): J45.51 - Severe persistent asthma with (acute) exacerbation Is this a current diagnosis for this admission?: Yes Plan: He will continue dexamethasone, DuoNeb high flow oxygen (3) Type 2 diabetes mellitus with diabetic polyneuropathy Qualifiers: Diabetes mellitus residential insulin use: without buttermaker continuous churn use Qualified Code(s): E11.42 - Type 2 diabetes mellitus with diabetic polyneuropathy Is this a current diagnosis for this admission?: Yes Plan: Continue Accu-Chek before every meal and at bedtime patient may need insulin drip if serum glucose becomes uncontrolled (4) Bilateral pneumonia Qualifiers: Pneumonia type: due to unspecified organism Lung location: unspecified part of lung Qualified Code(s): J18.9 - Pneumonia, unspecified organism Is this a current diagnosis for this admission?: Yes Plan: I cannot complete rule out bacterial pneumonia, Continue IV antibiotic (5) Acute hypoxemic respiratory failure Is this a current diagnosis for this admission?: Yes Plan: Patient will continue high flow oxygen nasal cannula - Time Time Spent with patient: 35 or more minutes Level of Care: IMCU Medications reviewed and adjusted accordingly: Yes Anticipated discharge: Home Anticipated DC Timeframe: Other
[2020-04-21] MEDS: DONEPEZIL HCL 5 MG TABLET PO SCH (21:39)
[2020-04-21] MEDS: TRAZODONE HCL 50 MG TABLET PO SCH (21:39)
[2020-04-21] MEDS: ACETAMINOPHEN 325 MG TABLET PO PRN (22:59)
[2020-04-22] MEDS: IPRATROPIUM/ALBUTEROL 0.5-2.5 MG/3 ML AMPUL NEB SCH ×6 (04:11→23:59)
[2020-04-22] MEDS: AZTREONAM 1 GM in DEXTROSE 5%-WATER 50 ML IV SCH ×3 (05:04→23:19)
[2020-04-22] MEDS: LEVOTHYROXINE SODIUM 0.112 MG TABLET PO SCH (05:05)
[2020-04-22 05:38] LABS: ABSOLUTE LYMPHOCYTES (AUTO) 0.8 10^3/uL (0.5-4.7); ABSOLUTE MONOCYTES (AUTO) 0.4 10^3/uL (0.1-1.4); ABSOLUTE NEUT (AUTO) 8.2 10^3/uL (1.7-8.2); BASOPHILS % (AUTO) 0.5 % (0-2); EOSINOPHILS % (AUTO) 0.3 % (0-6); HEMATOCRIT 41.6 % (37.9-51.0); LYMPHOCYTES % (AUTO) 8.2 % (13-45); MEAN CORPUSCULAR HEMOGLOBIN 27.1 pg (27.0-33.4); MEAN CORPUSCULAR HGB CONC 33.7 g/dL (32.0-36.0); MEAN CORPUSCULAR VOLUME 80 fl (80-97); MONOCYTES % (AUTO) 4.6 % (3-13); PLATELET COUNT 324 10^3/uL (150-450); RED BLOOD COUNT 5.17 10^6/uL (4.35-5.55); RED CELL DISTRIBUTION WIDTH 14.9 % (11.5-14.0); SEGMENTED NEUTROPHILS % (AUTO) 86.4 % (42-78); TOTAL CELLS COUNTED % (AUTO) 100 %; WHITE BLOOD COUNT 9.5 10^3/uL (4.0-10.5)
[2020-04-22 05:51] LABS: ALBUMIN 2.8 g/dL (3.5-5.0); ALKALINE PHOSPHATASE 67 U/L (38-126); ANION GAP 8 (5-19); ASPARTATE AMINO TRANSFERASE 43 U/L (17-59); BILIRUBIN,DIRECT 0.3 mg/dL (0.0-0.4); BILIRUBIN,TOTAL 0.7 mg/dL (0.2-1.3); BLOOD UREA NITROGEN 37 mg/dL (7-20); CALCIUM 8.4 mg/dL (8.4-10.2); CARBON DIOXIDE 22 mmol/L (22-30); CHLORIDE 108 mmol/L (98-107); GLUCOSE 152 mg/dL (75-110); POTASSIUM 4.4 mmol/L (3.6-5.0); TOTAL PROTEIN 6.4 g/dL (6.3-8.2)
[2020-04-22 06:08] LABS: C-REACTIVE PROTEIN 202.6 mg/L (<10.0)
[2020-04-22] MEDS: PANTOPRAZOLE SODIUM 20 MG TABLET.DR PO SCH (08:44)
[2020-04-22] MEDS: METFORMIN HCL 500 MG TABLET PO SCH ×2 (08:44→17:03)
[2020-04-22] MEDS: INSULIN LISPRO 100 UNIT/ML 3 ML VIAL SUBCUT SCH ×4 (08:53→23:18)
[2020-04-22] MEDS: ENOXAPARIN SODIUM INJ 40 MG/0.4 ML DISP.SYRIN SUBCUT SCH (09:23)
[2020-04-22] MEDS: DEXAMETHASONE SOD PHOS INJ 10 MG/1 ML VIAL IV SCH ×2 (09:23→23:17)
[2020-04-22] MEDS: ZINC SULFATE 220 MG CAPSULE PO SCH (09:24)
[2020-04-22] MEDS: FAMOTIDINE 20 MG TABLET PO SCH ×2 (09:24→23:17)
[2020-04-22] MEDS: CLOPIDOGREL BISULFATE 75 MG TABLET PO SCH (09:24)
[2020-04-22] MEDS: FLUTICASONE/VILANTEROL 200-25 MCG/DOSE IH SCH (09:24)
[2020-04-22] MEDS: MONTELUKAST SODIUM 10 MG TABLET PO SCH (09:24)
[2020-04-22] MEDS: CHOLECALCIFEROL (D3) 1,000 UNIT (25 MCG) TABLET PO SCH (09:24)
[2020-04-22] MEDS: ASCORBIC ACID 500 MG TABLET PO SCH ×2 (09:24→17:03)
[2020-04-22] MEDS: ASPIRIN 81 MG TABLET, ENT COATED PO SCH (09:24)
[2020-04-22] MEDS: SERTRALINE HCL 50 MG TABLET PO SCH (09:24)
[2020-04-22] MEDS: ALLOPURINOL 300 MG TABLET PO SCH (09:24)
[2020-04-22] MEDS: AZITHROMYCIN 500 MG in DEXTROSE 5%-WATER 250 ML IV SCH (09:42)
--- NOTE | 2020-04-22 09:50 | RADIOLOGY REPORT (SQ) ---
EXAM DESCRIPTION: CHEST SINGLE VIEW IMAGES COMPLETED DATE/TIME: 04/22/2020 9:15 am REASON FOR STUDY: pneumonia COMPARISON: 04/21/2020 EXAM PARAMETERS: NUMBER OF VIEWS: One view. TECHNIQUE: Single frontal radiographic view of the chest acquired. RADIATION DOSE: NA LIMITATIONS: None. FINDINGS: LUNGS AND PLEURA: Extensive bilateral parenchymal opacities, left greater than right, sommer sly stable. No significant effusion. No pneumothorax. MEDIASTINUM AND HILAR STRUCTURES: No masses. Contour normal. HEART AND VASCULAR STRUCTURES: Heart normal in size. Normal vasculature. BONES: No acute findings. HARDWARE: None in the chest. OTHER: No other significant finding. IMPRESSION: Stable diffuse bilateral airspace disease, left greater right. TECHNICAL DOCUMENTATION: JOB ID: [id number] 2010 [employer]- All Rights Reserved Reading location - IP/workstation name: [email or web address]
[2020-04-22] MEDS: SIMVASTATIN 10 MG TABLET PO SCH (17:03)
[2020-04-22] MEDS: NORMAL SALINE 250 ML with FUROSEMIDE 250 MG IV PRN ×2 (18:01)
--- NOTE | 2020-04-22 20:43 | PDOC PROGRESS REPORT ---
Subjective Date:: 04/22/20 Subjective:: Patient seen by the bedside, he continues to require high flow oxygen, presently on the maximum dose. On auscultation of the chest there is diffuse crackles there is no definite wheeze suggesting possible fluid in his lung, he will be treated with low-dose Furosemide infusion.Patient's condition remains very precarious 04/22/2020 Patient patient seen by the bedside, he continues to require supplemental oxygen via high flow nasal cannula. On auscultation of the chest there is minimal crackles compared to yesterday, he was started on low-dose furosemide infusion yesterday. The chest x-ray from today demonstrated bilateral diffuse infiltrates worse on the left than the right but is stable it is no worsening. Reason For Visit: COVID Physical Exam Vital Signs: Temp Pulse Resp BP Pulse Ox 98.4 F 69 24 H 150/84 H 91 L 04/22/20 17:04 04/22/20 19:50 04/22/20 19:50 04/22/20 17:04 04/22/20 19:50 Intake & Output 04/21/20 04/22/20 04/23/20 06:59 06:59 06:59 Intake Total 1160 1368 417 Output Total 700 1200 1400 Balance 460 168 -983 Weight 98.6 kg 98.6 kg General appearance: PRESENT: other - Patient on high flow oxygen Eye exam: PRESENT: PERRLA Respiratory exam: PRESENT: rales Cardiovascular exam: PRESENT: +S1, +S2 GI/Abdominal exam: PRESENT: soft Neurological exam: PRESENT: alert Results Laboratory Results: 04/22/20 04:46 04/22/20 04:46 04/22/20 04/22/20 04:46 04:46 WBC 9.5 RBC 5.17 Hgb 14.0 Hct 41.6 MCV 80 MCH 27.1 MCHC 33.7 RDW 14.9 H Plt Count 324 Seg Neutrophils % 86.4 H Sodium 138.2 Potassium 4.4 Chloride 108 H Carbon Dioxide 22 Anion Gap 8 BUN 37 H Creatinine 1.08 Est GFR ( Amer) > 60 Glucose 152 H Calcium 8.4 Ferritin 372.00 Total Bilirubin 0.7 AST 43 Alkaline Phosphatase 67 C-Reactive Protein 202.6 H Total Protein 6.4 Albumin 2.8 L 04/16/20 23:15 Blood Blood Culture - Final NO GROWTH IN 5 DAYS 04/16/20 23:15 Troponin I 0.031 Impressions: Chest/Abdomen CTA 04/17/20 00:00 IMPRESSION: 1. Respiratory motion obscures detail. No large central pulmonary embolism. Cannot exclude a lobar, segmental or subsegmental pulmonary embolism due to respiratory motion and phase of contrast timing. 2. Multifocal ground-glass attenuation in both lungs consistent with multifocal pneumonia. Commonly reported imaging features of COVID-19 pneumonia are present. Other processes such as influenza pneumonia and organizing pneumonia, as can be seen with drug toxicity and connective tissue disease, can cause a sim ilar imaging pattern. PneTyp Chest X-Ray 04/22/20 00:00 IMPRESSION: Stable diffuse bilateral airspace disease, left greater right. Assessment & Plan - Diagnosis (1) Pneumonia due to COVID-19 virus Is this a current diagnosis for this admission?: Yes Plan: Patient with pneumonia due to SARS-CoV-2 infection,He has finished the IV remdesivir, he will continue IV dexamethasone for a total of 10 days (2) Severe persistent asthma Qualifiers: Asthma complication type: with acute exacerbation Qualified Code(s): J45.51 - Severe persistent asthma with (acute) exacerbation Is this a current diagnosis for this admission?: Yes Plan: He will continue dexamethasone, DuoNeb high flow oxygen (3) Type 2 diabetes mellitus with diabetic polyneuropathy Qualifiers: Diabetes mellitus bottomer operator insulin use: without alf use Qualified Code(s): E11.42 - Type 2 diabetes mellitus with diabetic polyneuropathy Is this a current diagnosis for this admission?: Yes Plan: Continue Accu-Chek before every meal and at bedtime patient may need insulin drip if serum glucose becomes uncontrolled (4) Bilateral pneumonia Qualifiers: Pneumonia type: due to unspecified organism Lung location: unspecified part of lung Qualified Code(s): J18.9 - Pneumonia, unspecified organism Is this a current diagnosis for this admission?: Yes Plan: I cannot complete rule out bacterial pneumonia, Continue IV antibiotic, Chest x- ray stable (5) Acute hypoxemic respiratory failure Is this a current diagnosis for this admission?: Yes Plan: Patient will continue high flow oxygen nasal cannula - Time Time Spent with patient: 35 or more minutes Level of Care: IMCU Medications reviewed and adjusted accordingly: Yes Anticipated discharge: Home Anticipated DC Timeframe: Other - Inpatient Certification Based on my medical assessment, after consideration of the patient's comorbidities, presenting symptoms, or acuity I expect that the services needed warrant INPATIENT care.: Yes I certify that my determination is in accordance with my understanding of Medicare's requirements for reasonable and necessary INPATIENT services [42 CFR 412.3e].: Yes
[2020-04-22] MEDS: DONEPEZIL HCL 5 MG TABLET PO SCH (23:17)
[2020-04-22] MEDS: TRAZODONE HCL 50 MG TABLET PO SCH (23:17)
[2020-04-23] MEDS: IPRATROPIUM/ALBUTEROL 0.5-2.5 MG/3 ML AMPUL NEB SCH ×6 (04:25→23:21)
[2020-04-23] MEDS: LEVOTHYROXINE SODIUM 0.112 MG TABLET PO SCH (05:07)
[2020-04-23] MEDS: AZTREONAM 1 GM in DEXTROSE 5%-WATER 50 ML IV SCH ×3 (05:08→22:44)
[2020-04-23 05:48] LABS: ALBUMIN 2.7 g/dL (3.5-5.0); ALKALINE PHOSPHATASE 70 U/L (38-126); ANION GAP 9 (5-19); ASPARTATE AMINO TRANSFERASE 44 U/L (17-59); BILIRUBIN,DIRECT 0.3 mg/dL (0.0-0.4); BILIRUBIN,TOTAL 0.6 mg/dL (0.2-1.3); BLOOD UREA NITROGEN 39 mg/dL (7-20); CALCIUM 8.3 mg/dL (8.4-10.2); CARBON DIOXIDE 21 mmol/L (22-30); CHLORIDE 106 mmol/L (98-107); GLUCOSE 160 mg/dL (75-110); POTASSIUM 4.5 mmol/L (3.6-5.0); TOTAL PROTEIN 6.5 g/dL (6.3-8.2)
[2020-04-23 05:52] LABS: HEMATOCRIT 41.2 % (37.9-51.0); HEMOGLOBIN 13.7 g/dL (13.5-17.0); MEAN CORPUSCULAR HEMOGLOBIN 26.9 pg (27.0-33.4); MEAN CORPUSCULAR HGB CONC 33.3 g/dL (32.0-36.0); MEAN CORPUSCULAR VOLUME 81 fl (80-97); PLATELET COUNT 368 10^3/uL (150-450); RED BLOOD COUNT 5.09 10^6/uL (4.35-5.55); RED CELL DISTRIBUTION WIDTH 15.3 % (11.5-14.0); WHITE BLOOD COUNT 12.6 10^3/uL (4.0-10.5)
[2020-04-23 06:33] LABS: ABSOLUTE LYMPHOCYTES# (MANUAL) 0.6 10^3/uL (0.5-4.7); ABSOLUTE MONOCYTES # (MANUAL) 0.9 10^3/uL (0.1-1.4); BASOPHILS % (MANUAL) 0 % (0-2); EOSINOPHILS % (MANUAL) 0 % (0-6); LYMPHOCYTES % (MANUAL) 5 % (13-45); MONOCYTES % (MANUAL) 7 % (3-13); SEGMENTED NEUTROPHILS % (MAN) 88 % (42-78); TOTAL CELLS COUNTED 100
[2020-04-23 06:35] LABS: ANISOCYTOSIS 1+; BURR CELLS SLIGHT; OVALOCYTES SLIGHT; PLATELET COMMENT ADEQUATE; POIKILOCYTOSIS 1+; TOXIC GRANULATION SLIGHT
[2020-04-23] MEDS: INSULIN LISPRO 100 UNIT/ML 3 ML VIAL SUBCUT SCH ×4 (08:42→22:45)
[2020-04-23] MEDS: FAMOTIDINE 20 MG TABLET PO SCH ×2 (10:09→22:45)
[2020-04-23] MEDS: CHOLECALCIFEROL (D3) 1,000 UNIT (25 MCG) TABLET PO SCH (10:09)
[2020-04-23] MEDS: ZINC SULFATE 220 MG CAPSULE PO SCH (10:09)
[2020-04-23] MEDS: SERTRALINE HCL 50 MG TABLET PO SCH (10:09)
[2020-04-23] MEDS: ASPIRIN 81 MG TABLET, ENT COATED PO SCH (10:09)
[2020-04-23] MEDS: CLOPIDOGREL BISULFATE 75 MG TABLET PO SCH (10:09)
[2020-04-23] MEDS: ALLOPURINOL 300 MG TABLET PO SCH (10:09)
[2020-04-23] MEDS: DEXAMETHASONE SOD PHOS INJ 10 MG/1 ML VIAL IV SCH ×2 (10:10→22:44)
[2020-04-23] MEDS: PANTOPRAZOLE SODIUM 20 MG TABLET.DR PO SCH (10:10)
[2020-04-23] MEDS: FLUTICASONE/VILANTEROL 200-25 MCG/DOSE IH SCH (10:10)
[2020-04-23] MEDS: ENOXAPARIN SODIUM INJ 40 MG/0.4 ML DISP.SYRIN SUBCUT SCH (10:10)
[2020-04-23] MEDS: METFORMIN HCL 500 MG TABLET PO SCH ×2 (10:10→17:37)
[2020-04-23] MEDS: ASCORBIC ACID 500 MG TABLET PO SCH ×2 (10:10→17:40)
[2020-04-23] MEDS: MONTELUKAST SODIUM 10 MG TABLET PO SCH (10:10)
[2020-04-23] MEDS: AZITHROMYCIN 500 MG in DEXTROSE 5%-WATER 250 ML IV SCH (10:11)
--- NOTE | 2020-04-23 10:17 | RADIOLOGY REPORT (SQ) ---
EXAM DESCRIPTION: CHEST SINGLE VIEW IMAGES COMPLETED DATE/TIME: 04/23/2020 9:31 am REASON FOR STUDY: pneumonia COMPARISON: CT chest 04/17/2020 Multiple chest films since 04/16/2020, most recently 04/22/2020 EXAM PARAMETERS: NUMBER OF VIEWS: One view. TECHNIQUE: Single frontal radiographic view of the chest acquired. RADIATION DOSE: NA LIMITATIONS: None. FINDINGS: LUNGS AND PLEURA: Persistent diffuse alveolar and interstitial infiltrates unchanged. No pleural effusion. No pneumothorax. MEDIASTINUM AND HILAR STRUCTURES: No masses. Contour normal. HEART AND VASCULAR STRUCTURES: No cardiomegaly BONES: No acute findings. HARDWARE: None in the chest. OTHER: No other significant finding. IMPRESSION: Unchanged diffuse alveolar and interstitial infiltrates TECHNICAL DOCUMENTATION: JOB ID: [id number] 2010 [employer]- All Rights Reserved Reading location - IP/workstation name: [id number]
--- NOTE | 2020-04-23 15:54 | PDOC PROGRESS REPORT ---
Subjective Date:: 04/23/20 Subjective:: Patient seen by the bedside, he continues to require high flow oxygen, presently on the maximum dose. On auscultation of the chest there is diffuse crackles there is no definite wheeze suggesting possible fluid in his lung, he will be treated with low-dose Furosemide infusion.Patient's condition remains very precarious 04/22/2020 Patient patient seen by the bedside, he continues to require supplemental oxygen via high flow nasal cannula. On auscultation of the chest there is minimal crackles compared to yesterday, he was started on low-dose furosemide infusion yesterday. The chest x-ray from today demonstrated bilateral diffuse infiltrates worse on the left than the right but is stable it is no worsening. 04/23/2020 Patient is seen by the bedside, he continues to require supplemental oxygen via high flow nasal cannula, the chest x-ray that was done today was stable, diffuse bilateral infiltrate, no change from prior x-ray. This is encouraging because there is no worsening of infiltrate on the chest x-ray, clinically patient seems to be responding is alert is responding to question verbally is engaging. Reason For Visit: COVID Physical Exam Vital Signs: Temp Pulse Resp BP Pulse Ox 98.1 F 70 18 147/62 H 96 04/23/20 08:19 04/23/20 14:00 04/23/20 12:21 04/23/20 08:19 04/23/20 12:21 Intake & Output 04/22/20 04/23/20 04/24/20 06:59 06:59 06:59 Intake Total 1368 777 250 Output Total 1200 2300 Balance 168 -1523 250 Weight 98.6 kg 96.1 kg 96.1 kg General appearance: PRESENT: no acute distress, obese Eye exam: PRESENT: PERRLA Respiratory exam: PRESENT: rales Cardiovascular exam: PRESENT: +S1, +S2 GI/Abdominal exam: PRESENT: soft Neurological exam: PRESENT: alert Results Laboratory Results: 04/23/20 04:38 04/23/20 04:38 04/23/20 04/23/20 04:38 04:38 WBC 12.6 H RBC 5.09 Hgb 13.7 Hct 41.2 MCV 81 MCH 26.9 L MCHC 33.3 RDW 15.3 H Plt Count 368 Seg Neutrophils % Not Reportable Sodium 135.5 L Potassium 4.5 Chloride 106 Carbon Dioxide 21 L Anion Gap 9 BUN 39 H Creatinine 0.96 Est GFR ( Amer) > 60 Glucose 160 H Calcium 8.3 L Ferritin 376.00 Total Bilirubin 0.6 AST 44 Alkaline Phosphatase 70 C-Reactive Protein 71.0 H Total Protein 6.5 Albumin 2.7 L 04/16/20 23:15 Troponin I 0.031 Impressions: Chest/Abdomen CTA 04/17/20 00:00 IMPRESSION: 1. Respiratory motion obscures detail. No large central pulmonary embolism. Cannot exclude a lobar, segmental or subsegmental pulmonary embolism due to respiratory motion and phase of contrast timing. 2. Multifocal ground-glass attenuation in both lungs consistent with multifocal pneumonia. Commonly reported imaging features of COVID-19 pneumonia are present. Other processes such as influenza pneumonia and organizing pneumonia, as can be seen with drug toxicity and connective tissue disease, can cause a similar imaging pattern. PneTyp Chest X-Ray 04/23/20 00:00 IMPRESSION: Unchanged diffuse alveolar and interstitial infiltrates Assessment & Plan - Diagnosis (1) Pneumonia due to COVID-19 virus Is this a current diagnosis for this admission?: Yes Plan: Patient has finished IV remdesivir, still on IV dexamethasone and IV antibiotic (2) Severe persistent asthma Qualifiers: Asthma complication type: with acute exacerbation Qualified Code(s): J45.51 - Severe persistent asthma with (acute) exacerbation Is this a current diagnosis for this admission?: Yes Plan: He will continue dexamethasone, DuoNeb high flow oxygen (3) Type 2 diabetes mellitus with diabetic polyneuropathy Qualifiers: Diabetes mellitus nursing home insulin use: without exterminator helper termite use Qualified Code(s): E11.42 - Type 2 diabetes mellitus with diabetic polyneuropathy Is this a current diagnosis for this admission?: Yes Plan: Continue Accu-Chek before every meal and at bedtime patient may need insulin drip if serum glucose becomes uncontrolled (4) Bilateral pneumonia Qualifiers: Pneumonia type: due to unspecified organism Lung location: unspecified part of lung Qualified Code(s): J18.9 - Pneumonia, unspecified organism Is this a current diagnosis for this admission?: Yes Plan: I cannot complete rule out bacterial pneumonia, Continue IV antibiotic, Chest x-ray stable (5) Acute hypoxemic respiratory failure Is this a current diagnosis for this admission?: Yes Plan: Patient will continue high flow oxygen nasal cannula - Time Time Spent with patient: 35 or more minutes Level of Care: IMCU Medications reviewed and adjusted accordingly: Yes Anticipated discharge: Home Anticipated DC Timeframe: within 72 hours
[2020-04-23] MEDS: SIMVASTATIN 10 MG TABLET PO SCH (17:37)
[2020-04-23] MEDS ORDERED: PHENOL/SODIUM PHENOLATE 100 SPRAY/177 ML BOTTLE PO PRN (19:27)
[2020-04-23] MEDS: TRAZODONE HCL 50 MG TABLET PO SCH (22:45)
[2020-04-23] MEDS: DONEPEZIL HCL 5 MG TABLET PO SCH (22:45)
[2020-04-24] MEDS: IPRATROPIUM/ALBUTEROL 0.5-2.5 MG/3 ML AMPUL NEB SCH ×3 (04:12→12:50)
[2020-04-24] MEDS: AZTREONAM 1 GM in DEXTROSE 5%-WATER 50 ML IV SCH ×3 (05:13→21:34)
[2020-04-24] MEDS: LEVOTHYROXINE SODIUM 0.112 MG TABLET PO SCH (05:13)
[2020-04-24 06:39] LABS: ABSOLUTE BASOPHILS # (AUTO) 0.1 10^3/uL (0.0-0.2); ABSOLUTE LYMPHOCYTES (AUTO) 0.8 10^3/uL (0.5-4.7); ABSOLUTE MONOCYTES (AUTO) 0.6 10^3/uL (0.1-1.4); ABSOLUTE NEUT (AUTO) 9.1 10^3/uL (1.7-8.2); BASOPHILS % (AUTO) 0.7 % (0-2); EOSINOPHILS % (AUTO) 0.1 % (0-6); HEMATOCRIT 40.6 % (37.9-51.0); HEMOGLOBIN 13.8 g/dL (13.5-17.0); LYMPHOCYTES % (AUTO) 7.2 % (13-45); MEAN CORPUSCULAR HEMOGLOBIN 27.3 pg (27.0-33.4); MEAN CORPUSCULAR VOLUME 80 fl (80-97); PLATELET COUNT 334 10^3/uL (150-450); RED BLOOD COUNT 5.06 10^6/uL (4.35-5.55); RED CELL DISTRIBUTION WIDTH 14.9 % (11.5-14.0); TOTAL CELLS COUNTED % (AUTO) 100 %; WHITE BLOOD COUNT 10.6 10^3/uL (4.0-10.5)
[2020-04-24 07:13] LABS: ALBUMIN 2.8 g/dL (3.5-5.0); ALKALINE PHOSPHATASE 69 U/L (38-126); ANION GAP 7 (5-19); ASPARTATE AMINO TRANSFERASE 42 U/L (17-59); BILIRUBIN,DIRECT 0.3 mg/dL (0.0-0.4); BILIRUBIN,TOTAL 0.6 mg/dL (0.2-1.3); BLOOD UREA NITROGEN 38 mg/dL (7-20); C-REACTIVE PROTEIN 49.2 mg/L (<10.0); CALCIUM 8.3 mg/dL (8.4-10.2); CARBON DIOXIDE 23 mmol/L (22-30); CHLORIDE 104 mmol/L (98-107); GLUCOSE 173 mg/dL (75-110); POTASSIUM 4.7 mmol/L (3.6-5.0); TOTAL PROTEIN 6.5 g/dL (6.3-8.2)
--- NOTE | 2020-04-24 08:11 | RADIOLOGY REPORT (SQ) ---
EXAM DESCRIPTION: CHEST SINGLE VIEW IMAGES COMPLETED DATE/TIME: 04/24/2020 7:29 am REASON FOR STUDY: pneumonia COMPARISON: CT chest 04/17/2020 Multiple chest films since 04/20/2020 EXAM PARAMETERS: NUMBER OF VIEWS: One view. TECHNIQUE: Single frontal radiographic view of the chest acquired. RADIATION DOSE: NA LIMITATIONS: None. FINDINGS: LUNGS AND PLEURA: Diffuse bilateral alveolar and interstitial infiltrates are unchanged le ft greater than right. No pleural effusion. No pneumothorax. MEDIASTINUM AND HILAR STRUCTURES: No masses. Contour normal. HEART AND VASCULAR STRUCTURES: Stable mild cardiomegaly BONES: No acute findings. HARDWARE: None in the chest. OTHER: No other significant finding. IMPRESSION: No change from yesterday TECHNICAL DOCUMENTATION: JOB ID: [id number] 2010 [employer]- All Rights Reserved Reading location - IP/workstation name: [id number]
[2020-04-24] MEDS: INSULIN LISPRO 100 UNIT/ML 3 ML VIAL SUBCUT SCH ×4 (08:40→21:49)
[2020-04-24] MEDS: ASCORBIC ACID 500 MG TABLET PO SCH ×2 (10:24→17:34)
[2020-04-24] MEDS: CHOLECALCIFEROL (D3) 1,000 UNIT (25 MCG) TABLET PO SCH (10:24)
[2020-04-24] MEDS: SERTRALINE HCL 50 MG TABLET PO SCH (10:24)
[2020-04-24] MEDS: FLUTICASONE/VILANTEROL 200-25 MCG/DOSE IH SCH (10:25)
[2020-04-24] MEDS: ENOXAPARIN SODIUM INJ 40 MG/0.4 ML DISP.SYRIN SUBCUT SCH (10:25)
[2020-04-24] MEDS: METFORMIN HCL 500 MG TABLET PO SCH ×2 (10:25→17:34)
[2020-04-24] MEDS: MONTELUKAST SODIUM 10 MG TABLET PO SCH (10:25)
[2020-04-24] MEDS: PANTOPRAZOLE SODIUM 20 MG TABLET.DR PO SCH (10:25)
[2020-04-24] MEDS: ALLOPURINOL 300 MG TABLET PO SCH (10:25)
[2020-04-24] MEDS: CLOPIDOGREL BISULFATE 75 MG TABLET PO SCH (10:25)
[2020-04-24] MEDS: ZINC SULFATE 220 MG CAPSULE PO SCH (10:25)
[2020-04-24] MEDS: FAMOTIDINE 20 MG TABLET PO SCH ×2 (10:25→21:33)
[2020-04-24] MEDS: ASPIRIN 81 MG TABLET, ENT COATED PO SCH (10:25)
[2020-04-24] MEDS: DEXAMETHASONE SOD PHOS INJ 10 MG/1 ML VIAL IV SCH ×2 (10:25→21:34)
[2020-04-24] MEDS: AZITHROMYCIN 500 MG in DEXTROSE 5%-WATER 250 ML IV SCH (10:58)
--- NOTE | 2020-04-24 14:32 | PDOC PROGRESS REPORT ---
Subjective Date:: 04/24/20 Subjective:: Patient seen by the bedside, he continues to require high flow oxygen, presently on the maximum dose. On auscultation of the chest there is diffuse crackles there is no definite wheeze suggesting possible fluid in his lung, he will be treated with low-dose Furosemide infusion.Patient's condition remains very precarious 04/22/2020 Patient patient seen by the bedside, he continues to require supplemental oxygen via high flow nasal cannula. On auscultation of the chest there is minimal crackles compared to yesterday, he was started on low-dose furosemide infusion yesterday. The chest x-ray from today demonstrated bilateral diffuse infiltrates worse on the left than the right but is stable it is no worsening. 04/23/2020 Patient is seen by the bedside, he continues to require supplemental oxygen via high flow nasal cannula, the chest x-ray that was done today was stable, diffuse bilateral infiltrate, no change from prior x-ray. This is encouraging because there is no worsening of infiltrate on the chest x-ray, clinically patient seems to be responding is alert is responding to question verbally is engaging. 04/24/2020 Patient seen by the bedside, he seems to be improving, is alert he is asking to go home, that is a good sign, he wants of the high flow oxygen, that is a good sign, on auscultation of his chest, there is minimal crackles compared to previously, the chest x-ray stable diffuse bilateral infiltrate Reason For Visit: COVID Physical Exam Vital Signs: Temp Pulse Resp BP Pulse Ox 97.5 F 59 L 20 145/53 H 94 04/24/20 08:00 04/24/20 08:00 04/24/20 08:00 04/24/20 08:00 04/24/20 13:13 Intake & Output 04/23/20 04/24/20 04/25/20 06:59 06:59 06:59 Intake Total 777 967 Output Total 2300 1999 Balance -1523 -1033 Weight 96.1 kg 97.1 kg General appearance: PRESENT: no acute distress Eye exam: PRESENT: PERRLA Respiratory exam: PRESENT: rales Cardiovascular exam: PRESENT: +S1, +S2 GI/Abdominal exam: PRESENT: soft Neurological exam: PRESENT: alert Results Laboratory Results: 04/24/20 06:05 04/24/20 06:10 04/24/20 04/24/20 06:05 06:10 WBC 10.6 H RBC 5.06 Hgb 13.8 Hct 40.6 MCV 80 MCH 27.3 MCHC 34.0 RDW 14.9 H Plt Count 334 Seg Neutrophils % 86.0 H Sodium 133.7 L Potassium 4.7 Chloride 104 Carbon Dioxide 23 Anion Gap 7 BUN 38 H Creatinine 0.90 Est GFR ( Amer) > 60 Glucose 173 H Calcium 8.3 L Ferritin 363.00 Total Bilirubin 0.6 AST 42 Alkaline Phosphatase 69 C-Reactive Protein 49.2 H Total Protein 6.5 Albumin 2.8 L 04/16/20 23:15 Troponin I 0.031 Impressions: Chest/Abdomen CTA 04/17/20 00:00 IMPRESSION: 1. Respiratory motion obscures detail. No large central pulmonary embolism. Cannot exclude a lobar, segmental or subsegmental pulmonary embolism due to respiratory motion and phase of contrast timing. 2. Multifocal ground-glass attenuation in both lungs consistent with multifocal pneumonia. Commonly reported imaging features of COVID-19 pneumonia are present. Other processes such as influenza pneumonia and organizing pneumonia, as can be seen with drug toxicity and connective tissue disease, can cause a similar imaging pattern. PneTyp Chest X-Ray 04/24/20 00:00 IMPRESSION: No change from yesterday Assessment & Plan - Diagnosis (1) Pneumonia due to COVID-19 virus Is this a current diagnosis for this admission?: Yes Plan: Patient has finished IV remdesivir, still on IV dexamethasone and IV antibiotic (2) Severe persistent asthma Qualifiers: Asthma complication type: with acute exacerbation Qualified Code(s): J45.51 - Severe persistent asthma with (acute) exacerbation Is this a current diagnosis for this admission?: Yes Plan: 1 continue IV dexamethasone 2 decrease DuoNeb to every 4 as needed from scheduled 3DC high flow oxygen start Oxymizer (3) Type 2 diabetes mellitus with diabetic polyneuropathy Qualifiers: Diabetes mellitus halfway insulin use: without long distance operator use Qualified Code(s): E11.42 - Type 2 diabetes mellitus with diabetic polyneuropathy Is this a current diagnosis for this admission?: Yes Plan: Continue Accu-Chek before every meal and at bedtime patient may need insulin drip if serum glucose becomes uncontrolled (4) Bilateral pneumonia Qualifiers: Pneumonia type: due to unspecified organism Lung location: unspecified part of lung Qualified Code(s): J18.9 - Pneumonia, unspecified organism Is this a current diagnosis for this admission?: Yes (5) Acute hypoxemic respiratory failure Is this a current diagnosis for this admission?: Yes Plan: Discontinue high flow oxygen start Oxymizer - Time Time Spent with patient: 35 or more minutes Level of Care: IMCU Medications reviewed and adjusted accordingly: Yes Anticipated discharge: Home Anticipated DC Timeframe: Other
[2020-04-24] MEDS: SIMVASTATIN 10 MG TABLET PO SCH (17:34)
[2020-04-24] MEDS: NORMAL SALINE 250 ML with FUROSEMIDE 250 MG IV PRN ×2 (17:34)
[2020-04-24] MEDS: PHARMACY COMMUNICATION ORDER MC SCH (17:34)
[2020-04-24] MEDS: DONEPEZIL HCL 5 MG TABLET PO SCH (21:33)
[2020-04-24] MEDS: TRAZODONE HCL 50 MG TABLET PO SCH (21:34)
[2020-04-25] MEDS: AZTREONAM 1 GM in DEXTROSE 5%-WATER 50 ML IV SCH ×3 (05:54→21:07)
[2020-04-25] MEDS: LEVOTHYROXINE SODIUM 0.112 MG TABLET PO SCH (05:57)
[2020-04-25 07:02] LABS: ALKALINE PHOSPHATASE 71 U/L (38-126); ANION GAP 10 (5-19); ASPARTATE AMINO TRANSFERASE 39 U/L (17-59); BILIRUBIN,DIRECT 0.3 mg/dL (0.0-0.4); BILIRUBIN,TOTAL 0.5 mg/dL (0.2-1.3); BLOOD UREA NITROGEN 37 mg/dL (7-20); C-REACTIVE PROTEIN 26.6 mg/L (<10.0); CALCIUM 8.5 mg/dL (8.4-10.2); CARBON DIOXIDE 24 mmol/L (22-30); CHLORIDE 102 mmol/L (98-107); GLUCOSE 165 mg/dL (75-110); POTASSIUM 4.5 mmol/L (3.6-5.0); TOTAL PROTEIN 6.6 g/dL (6.3-8.2)
[2020-04-25 07:30] LABS: HEMATOCRIT 40.9 % (37.9-51.0); HEMOGLOBIN 13.8 g/dL (13.5-17.0); MEAN CORPUSCULAR HEMOGLOBIN 27.2 pg (27.0-33.4); MEAN CORPUSCULAR HGB CONC 33.7 g/dL (32.0-36.0); MEAN CORPUSCULAR VOLUME 81 fl (80-97); PLATELET COUNT 339 10^3/uL (150-450); RED BLOOD COUNT 5.08 10^6/uL (4.35-5.55); RED CELL DISTRIBUTION WIDTH 14.8 % (11.5-14.0); WHITE BLOOD COUNT 11.9 10^3/uL (4.0-10.5)
[2020-04-25 07:32] LABS: ABSOLUTE LYMPHOCYTES# (MANUAL) 1.3 10^3/uL (0.5-4.7); ABSOLUTE MONOCYTES # (MANUAL) 0.2 10^3/uL (0.1-1.4); BAND NEUTROPHILS % (MANUAL) 1 % (3-5); BASOPHILS % (MANUAL) 0 % (0-2); EOSINOPHILS % (MANUAL) 0 % (0-6); LYMPHOCYTES % (MANUAL) 8 % (13-45); METAMYELOCYTES % (MANUAL) 1 % (0-1); MONOCYTES % (MANUAL) 2 % (3-13); SEGMENTED NEUTROPHILS % (MAN) 85 % (42-78); TOTAL CELLS COUNTED 100
[2020-04-25 07:33] LABS: ANISOCYTOSIS SLIGHT
[2020-04-25 07:34] LABS: PLATELET COMMENT ADEQUATE
[2020-04-25] MEDS: METFORMIN HCL 500 MG TABLET PO SCH ×2 (09:18→17:58)
[2020-04-25] MEDS: INSULIN LISPRO 100 UNIT/ML 3 ML VIAL SUBCUT SCH ×4 (09:18→21:32)
[2020-04-25] MEDS: PANTOPRAZOLE SODIUM 20 MG TABLET.DR PO SCH (09:18)
[2020-04-25] MEDS: MONTELUKAST SODIUM 10 MG TABLET PO SCH (09:55)
[2020-04-25] MEDS: ZINC SULFATE 220 MG CAPSULE PO SCH (09:55)
[2020-04-25] MEDS: CHOLECALCIFEROL (D3) 1,000 UNIT (25 MCG) TABLET PO SCH (09:55)
[2020-04-25] MEDS: CLOPIDOGREL BISULFATE 75 MG TABLET PO SCH (09:56)
[2020-04-25] MEDS: AZITHROMYCIN 500 MG in DEXTROSE 5%-WATER 250 ML IV SCH (09:56)
[2020-04-25] MEDS: ASCORBIC ACID 500 MG TABLET PO SCH ×2 (09:56→17:58)
[2020-04-25] MEDS: SERTRALINE HCL 50 MG TABLET PO SCH (09:56)
[2020-04-25] MEDS: ASPIRIN 81 MG TABLET, ENT COATED PO SCH (09:56)
[2020-04-25] MEDS: ALLOPURINOL 300 MG TABLET PO SCH (09:56)
[2020-04-25] MEDS: FAMOTIDINE 20 MG TABLET PO SCH ×2 (09:56→21:08)
[2020-04-25] MEDS: ENOXAPARIN SODIUM INJ 40 MG/0.4 ML DISP.SYRIN SUBCUT SCH (09:57)
[2020-04-25] MEDS: DEXAMETHASONE SOD PHOS INJ 10 MG/1 ML VIAL IV SCH ×2 (09:57→21:08)
[2020-04-25] MEDS: FLUTICASONE/VILANTEROL 200-25 MCG/DOSE IH SCH (09:58)
[2020-04-25] MEDS: SIMVASTATIN 10 MG TABLET PO SCH (17:58)
[2020-04-25] MEDS: NORMAL SALINE 250 ML with FUROSEMIDE 250 MG IV PRN ×2 (17:58)
[2020-04-25] MEDS: PHARMACY COMMUNICATION ORDER MC SCH (17:59)
--- NOTE | 2020-04-25 20:14 | PDOC PROGRESS REPORT ---
Subjective Date:: 04/25/20 Subjective:: Patient seen by the bedside, he continues to require high flow oxygen, presently on the maximum dose. On auscultation of the chest there is diffuse crackles there is no definite wheeze suggesting possible fluid in his lung, he will be treated with low-dose Furosemide infusion.Patient's condition remains very precarious 04/22/2020 Patient patient seen by the bedside, he continues to require supplemental oxygen via high flow nasal cannula. On auscultation of the chest there is minimal crackles compared to yesterday, he was started on low-dose furosemide infusion yesterday. The chest x-ray from today demonstrated bilateral diffuse infiltrates worse on the left than the right but is stable it is no worsening. 04/23/2020 Patient is seen by the bedside, he continues to require supplemental oxygen via high flow nasal cannula, the chest x-ray that was done today was stable, diffuse bilateral infiltrate, no change from prior x-ray. This is encouraging because there is no worsening of infiltrate on the chest x-ray, clinically patient seems to be responding is alert is responding to question verbally is engaging. 04/24/2020 Patient seen by the bedside, he seems to be improving, is alert he is asking to go home, that is a good sign, he wants of the high flow oxygen, that is a good sign, on auscultation of his chest, there is minimal crackles compared to previously, the chest x-ray stable diffuse bilateral infiltrate 04/25/2020 Patient is improving presently on Oxymizer Reason For Visit: COVID Physical Exam Vital Signs: Temp Pulse Resp BP Pulse Ox 98.5 F 70 22 H 161/76 H 96 04/25/20 16:30 04/25/20 16:30 04/25/20 03:26 04/25/20 16:30 04/25/20 16:30 Intake & Output 04/24/20 04/25/20 04/26/20 06:59 06:59 06:59 Intake Total 967 1195 1319 Output Total 1999 8282 1000 Balance -1033 -1419 319 Weight 97.1 kg 96.2 kg 96.2 kg General appearance: PRESENT: no acute distress Eye exam: PRESENT: PERRLA Respiratory exam: PRESENT: clear to auscultation khang Cardiovascular exam: PRESENT: +S1, +S2 GI/Abdominal exam: PRESENT: soft Neurological exam: PRESENT: alert Results Laboratory Results: 04/25/20 05:26 04/25/20 05:26 04/25/20 04/25/20 05:26 05:26 WBC 11.9 H RBC 5.08 Hgb 13.8 Hct 40.9 MCV 81 MCH 27.2 MCHC 33.7 RDW 14.8 H Plt Count 339 Seg Neutrophils % Not Reportable Sodium 136.1 L Potassium 4.5 Chloride 102 Carbon Dioxide 24 Anion Gap 10 BUN 37 H Creatinine 0.94 Est GFR ( Amer) > 60 Glucose 165 H Calcium 8.5 Ferritin 319.00 Total Bilirubin 0.5 AST 39 Alkaline Phosphatase 71 C-Reactive Protein 26.6 H Total Protein 6.6 Albumin 3.0 L 04/16/20 23:15 Troponin I 0.031 Impressions: Chest/Abdomen CTA 04/17/20 00:00 IMPRESSION: 1. Respiratory motion obscures detail. No large central pulmonary embolism. Cannot exclude a lobar, segmental or subsegmental pulmonary embolism due to respiratory motion and phase of contrast timing. 2. Multifocal ground-glass attenuation in both lungs consistent with multifocal pneumonia. Commonly reported imaging features of COVID-19 pneumonia are present. Other processes such as influenza pneumonia and organizing pneumonia, as can be seen with drug toxicity and connective tissue disease, can cause a similar imaging pattern. PneTyp Chest X-Ray 04/24/20 00:00 IMPRESSION: No change from yesterday Assessment & Plan - Diagnosis (1) Pneumonia due to COVID-19 virus Is this a current diagnosis for this admission?: Yes Plan: Patient has finished IV remdesivir, still on IV dexamethasone and IV antibiotic (2) Severe persistent asthma Qualifiers: Asthma complication type: with acute exacerbation Qualified Code(s): J45.51 - Severe persistent asthma with (acute) exacerbation Is this a current diagnosis for this admission?: Yes Plan: 1 continue IV dexamethasone 2 decrease DuoNeb to every 4 as needed from scheduled 3DC high flow oxygen start Oxymizer (3) Type 2 diabetes mellitus with diabetic polyneuropathy Qualifiers: Diabetes mellitus long-term insulin use: without predatory animal exterminator use Qualified Code(s): E11.42 - Type 2 diabetes mellitus with diabetic polyneuropathy Is this a current diagnosis for this admission?: Yes Plan: Continue Accu-Chek before every meal and at bedtime patient may need insulin drip if serum glucose becomes uncontrolled (4) Bilateral pneumonia Qualifiers: Pneumonia type: due to unspecified organism Lung location: unspecified part of lung Qualified Code(s): J18.9 - Pneumonia, unspecified organism Is this a current diagnosis for this admission?: Yes (5) Acute hypoxemic respiratory failure Is this a current diagnosis for this admission?: Yes Plan: continue Oxymizer - Time Time Spent with patient: 25-34 minutes Level of Care: IMCU Medications reviewed and adjusted accordingly: Yes Anticipated discharge: Home Anticipated DC Timeframe: within 72 hours
[2020-04-25] MEDS: TRAZODONE HCL 50 MG TABLET PO SCH (21:08)
[2020-04-25] MEDS: DONEPEZIL HCL 5 MG TABLET PO SCH (21:08)
--- NOTE | 2020-04-26 04:25 | RADIOLOGY REPORT (SQ) ---
EXAM DESCRIPTION: X-ray single view chest. CLINICAL HISTORY: 75 years Male, PNEUMONIA COMPARISON: 04/24/2020 and 04/23/2020 TECHNIQUE: Single portable x-ray view of the chest performed on 04/26/2020 at 3:25 AM FINDINGS: The lung volumes are low. There is ongoing patchy airspace disease bilaterally worse in the left inferior hemithorax and right superior hemithorax concerning for multifocal pneumonia. There is no evidence of a pneumothorax. The cardiac silhouette is stable. The mediastinal contours are normal. No acute osseous abnormality is identified. No acute soft tissue abnormalities are seen. Lines and tubes: None. Free air: None IMPRESSION: Ongoing patchy airspace disease bilaterally worse in the left inferior hemithorax and right superior hemithorax concerning for multifocal pneumonia. Overall, no significant interval change when compared to the prior studies.
[2020-04-26 05:18] LABS: HEMATOCRIT 41.8 % (37.9-51.0); MEAN CORPUSCULAR HEMOGLOBIN 26.9 pg (27.0-33.4); MEAN CORPUSCULAR HGB CONC 33.4 g/dL (32.0-36.0); MEAN CORPUSCULAR VOLUME 81 fl (80-97); RED BLOOD COUNT 5.18 10^6/uL (4.35-5.55); WHITE BLOOD COUNT 12.2 10^3/uL (4.0-10.5)
[2020-04-26] MEDS: LEVOTHYROXINE SODIUM 0.112 MG TABLET PO SCH (05:20)
[2020-04-26] MEDS: AZTREONAM 1 GM in DEXTROSE 5%-WATER 50 ML IV SCH ×3 (05:20→22:26)
[2020-04-26 05:41] LABS: ALBUMIN 3.1 g/dL (3.5-5.0); ALKALINE PHOSPHATASE 75 U/L (38-126); ANION GAP 10 (5-19); ASPARTATE AMINO TRANSFERASE 37 U/L (17-59); BILIRUBIN,DIRECT 0.3 mg/dL (0.0-0.4); BILIRUBIN,TOTAL 0.4 mg/dL (0.2-1.3); BLOOD UREA NITROGEN 39 mg/dL (7-20); C-REACTIVE PROTEIN 15.5 mg/L (<10.0); CALCIUM 8.5 mg/dL (8.4-10.2); CARBON DIOXIDE 24 mmol/L (22-30); CHLORIDE 101 mmol/L (98-107); GLUCOSE 191 mg/dL (75-110); POTASSIUM 4.2 mmol/L (3.6-5.0); TOTAL PROTEIN 6.6 g/dL (6.3-8.2)
[2020-04-26 05:43] LABS: ABSOLUTE LYMPHOCYTES# (MANUAL) 1.3 10^3/uL (0.5-4.7); ABSOLUTE MONOCYTES # (MANUAL) 0.1 10^3/uL (0.1-1.4); BASOPHILS % (MANUAL) 0 % (0-2); EOSINOPHILS % (MANUAL) 0 % (0-6); LYMPHOCYTES % (MANUAL) 11 % (13-45); MONOCYTES % (MANUAL) 1 % (3-13); SEGMENTED NEUTROPHILS % (MAN) 88 % (42-78); TOTAL CELLS COUNTED 100
[2020-04-26 05:44] LABS: ANISOCYTOSIS SLIGHT; POIKILOCYTOSIS SLIGHT; TEAR DROP CELLS SLIGHT
[2020-04-26 05:45] LABS: HYPOCHROMASIA SLIGHT; PLATELET CLUMPS PRESENT; PLATELET COMMENT ADEQUATE
[2020-04-26 05:46] LABS: PLATELET COUNT 356 10^3/uL (150-450)
[2020-04-26] MEDS: PANTOPRAZOLE SODIUM 20 MG TABLET.DR PO SCH (08:42)
[2020-04-26] MEDS: INSULIN LISPRO 100 UNIT/ML 3 ML VIAL SUBCUT SCH ×4 (08:42→22:26)
[2020-04-26] MEDS: METFORMIN HCL 500 MG TABLET PO SCH ×2 (08:42→16:16)
[2020-04-26] MEDS: ASCORBIC ACID 500 MG TABLET PO SCH ×2 (09:41→18:14)
[2020-04-26] MEDS: CLOPIDOGREL BISULFATE 75 MG TABLET PO SCH (09:41)
[2020-04-26] MEDS: FAMOTIDINE 20 MG TABLET PO SCH ×2 (09:41→22:27)
[2020-04-26] MEDS: ALLOPURINOL 300 MG TABLET PO SCH (09:41)
[2020-04-26] MEDS: ZINC SULFATE 220 MG CAPSULE PO SCH (09:41)
[2020-04-26] MEDS: CHOLECALCIFEROL (D3) 1,000 UNIT (25 MCG) TABLET PO SCH (09:41)
[2020-04-26] MEDS: ASPIRIN 81 MG TABLET, ENT COATED PO SCH (09:41)
[2020-04-26] MEDS: SERTRALINE HCL 50 MG TABLET PO SCH (09:41)
[2020-04-26] MEDS: MONTELUKAST SODIUM 10 MG TABLET PO SCH (09:41)
[2020-04-26] MEDS: DEXAMETHASONE SOD PHOS INJ 10 MG/1 ML VIAL IV SCH ×2 (09:42→22:27)
[2020-04-26] MEDS: AZITHROMYCIN 500 MG in DEXTROSE 5%-WATER 250 ML IV SCH (09:42)
[2020-04-26] MEDS: ENOXAPARIN SODIUM INJ 40 MG/0.4 ML DISP.SYRIN SUBCUT SCH (09:42)
[2020-04-26] MEDS: FLUTICASONE/VILANTEROL 200-25 MCG/DOSE IH SCH (10:00)
[2020-04-26] MEDS: NORMAL SALINE 250 ML with FUROSEMIDE 250 MG IV PRN ×2 (18:14)
[2020-04-26] MEDS: SIMVASTATIN 10 MG TABLET PO SCH (18:14)
[2020-04-26] MEDS: PHARMACY COMMUNICATION ORDER MC SCH (18:15)
--- NOTE | 2020-04-26 20:40 | PDOC PROGRESS REPORT ---
Subjective Date:: 04/26/20 Subjective:: Patient seen by the bedside, he continues to require high flow oxygen, presently on the maximum dose. On auscultation of the chest there is diffuse crackles there is no definite wheeze suggesting possible fluid in his lung, he will be treated with low-dose Furosemide infusion.Patient's condition remains very precarious 04/22/2020 Patient patient seen by the bedside, he continues to require supplemental oxygen via high flow nasal cannula. On auscultation of the chest there is minimal crackles compared to yesterday, he was started on low-dose furosemide infusion yesterday. The chest x-ray from today demonstrated bilateral diffuse infiltrates worse on the left than the right but is stable it is no worsening. 04/23/2020 Patient is seen by the bedside, he continues to require supplemental oxygen via high flow nasal cannula, the chest x-ray that was done today was stable, diffuse bilateral infiltrate, no change from prior x-ray. This is encouraging because there is no worsening of infiltrate on the chest x-ray, clinically patient seems to be responding is alert is responding to question verbally is engaging. 04/24/2020 Patient seen by the bedside, he seems to be improving, is alert he is asking to go home, that is a good sign, he wants of the high flow oxygen, that is a good sign, on auscultation of his chest, there is minimal crackles compared to previously, the chest x-ray stable diffuse bilateral infiltrate 04/25/2020 Patient is improving presently on Oxymizer 04/26/2020 Patient seen by the bedside, he has made significant improvement in his cond ition on auscultation of his chest there is no wheeze completely clear, patient is able to sit up by the bedside Reason For Visit: COVID Physical Exam Vital Signs: Temp Pulse Resp BP Pulse Ox 98.5 F 85 22 H 138/79 H 94 04/26/20 19:45 04/26/20 19:24 04/26/20 19:24 04/26/20 19:24 04/26/20 19:48 Intake & Output 04/25/20 04/26/20 04/27/20 06:59 06:59 06:59 Intake Total 1195 1319 779 Output Total 2324 2024 700 Balance -1130 -706 79 Weight 96.2 kg 95.5 kg General appearance: PRESENT: no acute distress Eye exam: PRESENT: PERRLA Respiratory exam: PRESENT: clear to auscultation khang Cardiovascular exam: PRESENT: +S1, +S2 GI/Abdominal exam: PRESENT: soft Neurological exam: PRESENT: alert, CN II-XII grossly intact Results Laboratory Results: 04/26/20 04:20 04/26/20 04:20 04/26/20 04/26/20 04:20 04:20 WBC 12.2 H RBC 5.18 Hgb 14.0 Hct 41.8 MCV 81 MCH 26.9 L MCHC 33.4 RDW 15.0 H Plt Count 356 Seg Neutrophils % Not Reportable Sodium 135.2 L Potassium 4.2 Chloride 101 Carbon Dioxide 24 Anion Gap 10 BUN 39 H Creatinine 0.95 Est GFR ( Amer) > 60 Glucose 191 H Calcium 8.5 Ferritin 313.00 Total Bilirubin 0.4 AST 37 Alkaline Phosphatase 75 C-Reactive Protein 15.5 H Total Protein 6.6 Albumin 3.1 L 04/16/20 23:15 Troponin I 0.031 Impressions: Chest/Abdomen CTA 04/17/20 00:00 IMPRESSION: 1. Respiratory motion obscures detail. No large central pulmonary embolism. Cannot exclude a lobar, segmental or subsegmental pulmonary embolism due to respiratory motion and phase of contrast timing. 2. Multifocal ground-glass attenuation in both lungs consistent with multifocal pneumonia. Commonly reported imaging features of COVID-19 pneumonia are present. Other processes such as influenza pneumonia and organizing pneumonia, as can be seen with drug toxicity and connective tissue disease, can cause a similar imaging pattern. PneTyp Chest X-Ray 04/26/20 00:00 IMPRESSION: Ongoing patchy airspace disease bilaterally worse in the left inferior hemithorax and right superior hemithorax concerning for multifocal pneumonia. Overall, no significant interval change when compared to the prior studies. Assessment & Plan - Diagnosis (1) Pneumonia due to COVID-19 virus Is this a current diagnosis for this admission?: Yes Plan: Patient has finished IV remdesivir, still on IV dexamethasone and IV antibiotic (2) Severe persistent asthma Qualifiers: Asthma complication type: with acute exacerbation Qualified Code(s): J45.51 - Severe persistent asthma with (acute) exacerbation Is this a current diagnosis for this admission?: Yes Plan: 1 continue IV dexamethasone 2 decrease DuoNeb to every 4 as needed from scheduled 3DC high flow oxygen start Oxymizer (3) Type 2 diabetes mellitus with diabetic polyneuropathy Qualifiers: Diabetes mellitus lobsterman insulin use: without halfway use Qualified Code(s): E11.42 - Type 2 diabetes mellitus with diabetic polyneuropathy Is this a current diagnosis for this admission?: Yes Plan: Continue Accu-Chek before every meal and at bedtime patient may need insulin drip if serum glucose becomes uncontrolled (4) Bilateral pneumonia Qualifiers: Pneumonia type: due to unspecified organism Lung location: unspecified part of lung Qualified Code(s): J18.9 - Pneumonia, unspecified organism Is this a current diagnosis for this admission?: Yes (5) Acute hypoxemic respiratory failure Is this a current diagnosis for this admission?: Yes Plan: continue Oxymizer - Time Time Spent with patient: 35 or more minutes Level of Care: IMCU Medications reviewed and adjusted accordingly: Yes Anticipated discharge: Home - Inpatient Certification Based on my medical assessment, after consideration of the patient's comorbiditi es, presenting symptoms, or acuity I expect that the services needed warrant INPATIENT care.: Yes I certify that my determination is in accordance with my understanding of [facility]'s requirements for reasonable and necessary INPATIENT services [42 CFR 412.3e].: Yes
[2020-04-26] MEDS: DONEPEZIL HCL 5 MG TABLET PO SCH (22:27)
[2020-04-26] MEDS: TRAZODONE HCL 50 MG TABLET PO SCH (22:27)
[2020-04-27] MEDS: LEVOTHYROXINE SODIUM 0.112 MG TABLET PO SCH (05:32)
[2020-04-27] MEDS: AZTREONAM 1 GM in DEXTROSE 5%-WATER 50 ML IV SCH ×2 (05:32→14:18)
[2020-04-27 05:43] LABS: HEMOGLOBIN 14.2 g/dL (13.5-17.0); MEAN CORPUSCULAR HEMOGLOBIN 26.8 pg (27.0-33.4); MEAN CORPUSCULAR VOLUME 82 fl (80-97); PLATELET COUNT 353 10^3/uL (150-450); RED BLOOD COUNT 5.27 10^6/uL (4.35-5.55); RED CELL DISTRIBUTION WIDTH 14.8 % (11.5-14.0); WHITE BLOOD COUNT 13.7 10^3/uL (4.0-10.5)
[2020-04-27 05:49] LABS: ALBUMIN 3.1 g/dL (3.5-5.0); ALKALINE PHOSPHATASE 75 U/L (38-126); ANION GAP 8 (5-19); ASPARTATE AMINO TRANSFERASE 37 U/L (17-59); BILIRUBIN,DIRECT 0.2 mg/dL (0.0-0.4); BILIRUBIN,TOTAL 0.5 mg/dL (0.2-1.3); BLOOD UREA NITROGEN 37 mg/dL (7-20); C-REACTIVE PROTEIN 9.8 mg/L (<10.0); CALCIUM 8.7 mg/dL (8.4-10.2); CARBON DIOXIDE 28 mmol/L (22-30); CHLORIDE 99 mmol/L (98-107); GLUCOSE 209 mg/dL (75-110); POTASSIUM 4.8 mmol/L (3.6-5.0); TOTAL PROTEIN 6.9 g/dL (6.3-8.2)
[2020-04-27 06:16] LABS: ABSOLUTE LYMPHOCYTES# (MANUAL) 1.8 10^3/uL (0.5-4.7); ABSOLUTE MONOCYTES # (MANUAL) 0.4 10^3/uL (0.1-1.4); ANISOCYTOSIS SLIGHT; BAND NEUTROPHILS % (MANUAL) 2 % (3-5); BASOPHILS % (MANUAL) 0 % (0-2); EOSINOPHILS % (MANUAL) 0 % (0-6); LYMPHOCYTES % (MANUAL) 13 % (13-45); MONOCYTES % (MANUAL) 3 % (3-13); PLATELET COMMENT ADEQUATE; SEGMENTED NEUTROPHILS % (MAN) 82 % (42-78); TOTAL CELLS COUNTED 100; TOXIC VACUOLATION PRESENT
[2020-04-27] MEDS: INSULIN LISPRO 100 UNIT/ML 3 ML VIAL SUBCUT SCH ×2 (08:53→14:17)
[2020-04-27] MEDS: METFORMIN HCL 500 MG TABLET PO SCH (08:53)
[2020-04-27] MEDS: PANTOPRAZOLE SODIUM 20 MG TABLET.DR PO SCH (08:53)
[2020-04-27] MEDS: ENOXAPARIN SODIUM INJ 40 MG/0.4 ML DISP.SYRIN SUBCUT SCH (10:14)
[2020-04-27] MEDS: ALLOPURINOL 300 MG TABLET PO SCH (10:14)
[2020-04-27] MEDS: DEXAMETHASONE SOD PHOS INJ 10 MG/1 ML VIAL IV SCH (10:14)
[2020-04-27] MEDS: ASCORBIC ACID 500 MG TABLET PO SCH (10:14)
[2020-04-27] MEDS: SERTRALINE HCL 50 MG TABLET PO SCH (10:15)
[2020-04-27] MEDS: ZINC SULFATE 220 MG CAPSULE PO SCH (10:15)
[2020-04-27] MEDS: MONTELUKAST SODIUM 10 MG TABLET PO SCH (10:15)
[2020-04-27] MEDS: CHOLECALCIFEROL (D3) 1,000 UNIT (25 MCG) TABLET PO SCH (10:15)
[2020-04-27] MEDS: ASPIRIN 81 MG TABLET, ENT COATED PO SCH (10:15)
[2020-04-27] MEDS: CLOPIDOGREL BISULFATE 75 MG TABLET PO SCH (10:15)
[2020-04-27] MEDS: FAMOTIDINE 20 MG TABLET PO SCH (10:15)
[2020-04-27] MEDS: AZITHROMYCIN 500 MG in DEXTROSE 5%-WATER 250 ML IV SCH (10:42)
[2020-04-27] MEDS: FLUTICASONE/VILANTEROL 200-25 MCG/DOSE IH SCH (10:43)
--- NOTE | 2020-04-27 15:22 | PDOC DISCHARGE SUMMARY ---
Impression - Admit/DC Date/PCP Admission Date/Primary Care Provider: 04/17/20 02:33 JOSE WHITMORE MD Discharge Date: 04/27/20 - Discharge Diagnosis (1) Acute hypoxemic respiratory failure Is this a current diagnosis for this admission?: Yes (2) Pneumonia due to COVID-19 virus Is this a current diagnosis for this admission?: Yes (3) Severe persistent asthma Is this a current diagnosis for this admission?: Yes (4) Type 2 diabetes mellitus with diabetic polyneuropathy Is this a current diagnosis for this admission?: Yes (5) Bilateral pneumonia Is this a current diagnosis for this admission?: Yes - Additional Information Discharge Diet: Diabetic Discharge Activity: Activity As Tolerated Referrals: JOSE WHITMORE MD [Primary Care Provider] - 05/09/20 9:30 am Home Medications: Allopurinol [Zyloprim 300 mg Tablet] 300 mg PO DAILY 02/21/12 Sertraline HCl [Zoloft 50 mg Tablet] 100 mg PO DAILY 02/21/12 Trazodone HCl [Desyrel] 100 mg PO QHS 02/21/12 Budesonide/Formoterol Fumarate [Symbicort HFA 160-4.5 mcg Inhaler 6 gm] 1 puff IH Q12 07/18/15 Empagliflozin [Jardiance] 25 mg PO DAILY 07/18/15 Montelukast Sodium 10 mg PO DAILY 07/18/15 Clopidogrel Bisulfate [Plavix 75 mg Tablet] 75 mg PO DAILY 02/25/18 Donepezil HCl [Aricept 5 mg Tablet] 5 mg PO QHS 04/18/20 Furosemide [Lasix 40 mg Tablet] 40 mg PO DAILY 04/18/20 Ipratropium/Albuterol Sulfate [Duoneb 3 ml Ampul] 3 ml NEB RTQ6 04/18/20 Levothyroxine Sodium [Synthroid 0.112 mg Tablet] 112 mcg PO DAILY 04/18/20 Metformin HCl [Glucophage] 1,000 mg PO BID 04/18/20 Metoprolol Tartrate [Lopressor 100 mg Tablet] 100 mg PO Q12 04/18/20 Omeprazole 20 mg PO DAILY 04/18/20 Simvastatin 20 mg PO QPM 04/18/20 Acetaminophen [Tylenol 325 mg Tablet] 650 mg PO Q4HP PRN tablet 04/27/20 History of Present Illiness History of Present Illness: RODERICK ANSARI is a 75 year old male, He was admitted when he presented with acute hypoxemic respiratory failure due to COVID-19 positive test (U07.1, COVID- 19) with Acute Pneumonia (J12.89, Other viral pneumonia)(If respiratory failure or sepsis present, add as separate assessment). Hospital Course Hospital Course: Patient was admitted for the management of acute hypoxemic respiratory failure, Covid pneumonia, he was treated with IV dexamethasone 6 mg every 12 hours, IV remdesivir. He required NIPPV, high flow oxygen, Oxymizer, for Oxygen supplementation.Patient was very acutely ill require prolonged steroid, he has done very well, he has been asking to be discharged home the last 2 days. I felt patient needed to stay few more days but he refused is oxygen saturation in ambient air, 86% to 88%. He will require home oxygen on discharge.He was also empirically treated with IV antibiotic Physical Exam Vital Signs: Temp Pulse Resp BP Pulse Ox 97.8 F 80 18 139/75 H 94 04/27/20 13:25 04/27/20 14:00 04/27/20 13:25 04/27/20 13:25 04/27/20 13:25 Intake & Output 04/26/20 04/27/20 04/28/20 06:59 06:59 06:59 Intake Total 1319 779 Output Total 8 6340 Balance -706 775 Weight 95.5 kg 94.7 kg General appearance: PRESENT: no acute distress Eye exam: PRESENT: PERRLA Respiratory exam: PRESENT: clear to auscultation khang Cardiovascular exam: PRESENT: +S1, +S2 GI/Abdominal exam: PRESENT: soft Neurological exam: PRESENT: alert, CN II-XII grossly intact Results Laboratory Results: WBC 13.7 10^3/uL (4.0-10.5) H 04/27/20 04:23 RBC 5.27 10^6/uL (4.35-5.55) 04/27/20 04:23 Hgb 14.2 g/dL (13.5-17.0) 04/27/20 04:23 Hct 43.0 % (37.9-51.0) 04/27/20 04:23 MCV 82 fl (80-97) 04/27/20 04:23 MCH 26.8 pg (27.0-33.4) L 04/27/20 04:23 MCHC 33.0 g/dL (32.0-36.0) 04/27/20 04:23 RDW 14.8 % (11.5-14.0) H 04/27/20 04:23 Plt Count 353 10^3/uL (150-450) 04/27/20 04:23 Lymph % (Auto) Not Reportable 04/27/20 04:23 [place] % (Auto) Not Reportable 04/27/20 04:23 Eos % (Auto) Not Reportable 04/27/20 04:23 Baso % (Auto) Not Reportable 04/27/20 04:23 Absolute Neuts (auto) Not Reportable 04/27/20 04:23 Absolute Lymphs (auto) Not Reportable 04/27/20 04:23 Absolute Monos (auto) Not Reportable 04/27/20 04:23 Absolute Eos (auto) Not Reportable 04/27/20 04:23 Absolute Basos (auto) Not Reportable 04/27/20 04:23 Total Counted 100 04/27/20 04:23 Seg Neutrophils % Not Reportable 04/27/20 04:23 Seg Neuts % (Manual) 82 % (42-78) H 04/27/20 04:23 Band Neutrophils % 2 % (3-5) L 04/27/20 04:23 Lymphocytes % (Manual) 13 % (13-45) 04/27/20 04:23 Atypical Lymphs % 3 % (0) 04/25/20 05:26 Monocytes % (Manual) 3 % (3-13) 04/27/20 04:23 Eosinophils % (Manual) 0 % (0-6) 04/27/20 04:23 Basophils % (Manual) 0 % (0-2) 04/27/20 04:23 Metamyelocytes % 1 % (0-1) 04/25/20 05:26 Abs Neuts (Manual) 11.5 10^3/uL (1.7-8.2) H 04/27/20 04:23 Abs Lymphs (Manual) 1.8 10^3/uL (0.5-4.7) 04/27/20 04:23 Abs Monocytes (Manual) 0.4 10^3/uL (0.1-1.4) 04/27/20 04:23 Absolute Eos (Manual) 0.0 10^3/uL (0.0-0.6) 04/27/20 04:23 Abs Basophils (Manual) 0.0 10^3/uL (0.0-0.2) 04/27/20 04:23 Toxic Granulation SLIGHT 04/23/20 04:38 Toxic Vacuolation PRESENT 04/27/20 04:23 Clumped Platelets PRESENT 04/26/20 04:20 Platelet Comment ADEQUATE 04/27/20 04:23 Polychromasia SLIGHT 04/19/20 04:35 Hypochromasia SLIGHT 04/26/20 04:20 Poikilocytosis SLIGHT 04/26/20 04:20 Anisocytosis SLIGHT 04/27/20 04:23 Microcytosis SLIGHT 04/26/20 04:20 Tear Drop Cells SLIGHT 04/26/20 04:20 Ovalocytes SLIGHT 04/23/20 04:38 [place] Cells SLIGHT 04/23/20 04:38 PT 17.1 SEC (11.4-15.4) H 04/21/20 09:57 INR 1.38 04/21/20 09:57 Fibrinogen 499 mg/dL (209-497) H 04/27/20 07:58 VBG pH 7.30 (7.30-7.42) 04/16/20 23:20 VBG pCO2 40.8 mmHg (35-63) 04/16/20 23:20 VBG HCO3 19.7 mmol/L (20-32) L 04/16/20 23:20 VBG Base Excess -6.3 mmol/L 04/16/20 23:20 Sodium 135.0 mmol/L (137-145) L 04/27/20 04:23 Potassium 4.8 mmol/L (3.6-5.0) 04/27/20 04:23 Chloride 99 mmol/L (98-107) 04/27/20 04:23 Carbon Dioxide 28 mmol/L (22-30) 04/27/20 04:23 Anion Gap 8 (5-19) 04/27/20 04:23 BUN 37 mg/dL (7-20) H 04/27/20 04:23 Creatinine 0.92 mg/dL (0.52-1.25) 04/27/20 04:23 Est GFR ( Amer) > 60 (>60) 04/27/20 04:23 Est GFR (MDRD) Non-Af > 60 (>60) 04/27/20 04:23 Glucose 209 mg/dL (75-110) H 04/27/20 04:23 POC Glucose 123 mg/dL (70-110) H 04/27/20 13:24 Lactic Acid 1.4 mmol/L (0.7-2.1) 04/16/20 23:15 Calcium 8.7 mg/dL (8.4-10.2) 04/27/20 04:23 Ferritin 368.00 ng/mL (17.9-464.0) 04/27/20 04:23 Total Bilirubin 0.5 mg/dL (0.2-1.3) 04/27/20 04:23 Direct Bilirubin 0.2 mg/dL (0.0-0.4) 04/27/20 04:23 Neonat Total Bilirubin Not Reportable 04/27/20 04:23 Neonat Direct Bilirubin Not Reportable 04/27/20 04:23 Neonat Indirect Bili Not Reportable 04/27/20 04:23 AST 37 U/L (17-59) 04/27/20 04:23 ALT 40 U/L (<50) 04/27/20 04:23 Alkaline Phosphatase 75 U/L (38-126) 04/27/20 04:23 Troponin I 0.031 ng/mL 04/16/20 23:15 C-Reactive Protein 9.8 mg/L (<10.0) 04/27/20 04:23 Total Protein 6.9 g/dL (6.3-8.2) 04/27/20 04:23 Albumin 3.1 g/dL (3.5-5.0) L 04/27/20 04:23 [place] Human Metapneumo PCR NOT DETECTED (NOT DETECT) 04/16/20 23:20 Adenovirus (PCR) NOT DETECTED (NOT DETECT) 04/16/20 23:20 B. pertussis DNA (PCR) NOT DETECTED (NOT DETECT) 04/16/20 23:20 B.parapertussis DNA PCR NOT DETECTED (NOT DETECT) 04/16/20 23:20 C. pneumoniae DNA (PCR) NOT DETECTED (NOT DETECT) 04/16/20 23:20 Coronavirus OC43 (PCR) NOT DETECTED (NOT DETECT) 04/16/20 23:20 Coronavirus HKU1 (PCR) NOT DETECTED (NOT DETECT) 04/16/20 23:20 Coronavirus 229E (PCR) NOT DETECTED (NOT DETECT) 04/16/20 23:20 Coronavirus NL63 (PCR) NOT DETECTED (NOT DETECT) 04/16/20 23:20 Influenza A (Rapid) NEGATIVE (NEGATIVE) 04/16/20 23:22 Influenza A (H1) PCR NOT DETECTED (NOT DETECT) 04/16/20 23:20 Influ A (H1N1/09) PCR NOT DETECTED (NOT DETECT) 04/16/20 23:20 Influenza A (H3) PCR NOT DETECTED (NOT DETECT) 04/16/20 23:20 Influenza Type A (PCR) NOT DETECTED (NOT DETECT) 04/16/20 23:20 Influenza B (Rapid) NEGATIVE (NEGATIVE) 04/16/20 23:22 Influenza Type B (PCR) NOT DETECTED (NOT DETECT) 04/16/20 23:20 M. pneumoniae (PCR) NOT DETECTED (NOT DETECT) 04/16/20 23:20 Parainfluenza 1 (PCR) NOT DETECTED (NOT DETECT) 04/16/20 23:20 Parainfluenza 2 (PCR) NOT DETECTED (NOT DETECT) 04/16/20 23:20 Parainfluenza 3 (PCR) NOT DETECTED (NOT DETECT) 04/16/20 23:20 Parainfluenza 4 (PCR) NOT DETECTED (NOT DETECT) 04/16/20 23:20 RSV (PCR) NOT DETECTED (NOT DETECT) 04/16/20 23:20 Entero/Rhino (PCR) NOT DETECTED (NOT DETECT) 04/16/20 23:20 SARS-CoV-2 (PCR) DETECTED (NOT DETECT) H 04/16/20 23:20 04/16/20 23:15 Troponin I 0.031 Impressions: Chest X-Ray 04/16/20 22:52 IMPRESSION: Bilateral pneumonia. Chest/Abdomen CTA 04/17/20 00:00 IMPRESSION: 1. Respiratory motion obscures detail. No large central pulmonary embolism. Cannot exclude a lobar, segmental or subsegmental pulmonary embolism due to respiratory motion and phase of contrast timing. 2. Multifocal ground-glass attenuation in both lungs consistent with multifocal pneumonia. Commonly reported imaging features of COVID-19 pneumonia are present. Other processes such as influenza pneumonia and organizing pneumonia, as can be seen with drug toxicity and connective tissue disease, can cause a similar imaging pattern. PneTyp Chest X-Ray 04/19/20 00:00 IMPRESSION: Stable pulmonary exam demonstrating multifocal airspace opacities. Chest X-Ray 04/20/20 00:00 IMPRESSION: Rehydration versus progressing pneumonia. Chest X-Ray 04/21/20 00:00 IMPRESSION: 1. No significant interval changes since the prior study dated 04/20/2020. Bilateral airspace disease is again noted. Chest X-Ray 04/22/20 00:00 IMPRESSION: Stable diffuse bilateral airspace disease, left greater right. Chest X-Ray 04/23/20 00:00 IMPRESSION: Unchanged diffuse alveolar and interstitial infiltrates Chest X-Ray 04/24/20 00:00 IMPRESSION: No change from yesterday Chest X-Ray 04/26/20 00:00 IMPRESSION: Ongoing patchy airspace disease bilaterally worse in the left inferior hemithorax and right superior hemithorax concerning for multifocal pneumonia. Overall, no significant interval change when compared to the prior studies. Stroke Is this a Stroke Patient?: No Acute Heart Failure Is this a Heart Failure Patient?: No
[2020-04-27 18:18] VITALS: BP 146/73
== END 2020-04-27 19:00 | disposition hospice, home (50) | DRG 177 ==
LOC: ER 22:07 → EH 04-17 02:33 → 3N 04-17 04:00
PROVIDERS: ADMIT Internal Medicine; ATTEND Internal Medicine
PROC: XW033E5 Introduction of Remdesivir Anti-infective into Peripheral Vein, Percutaneous Approach, New Technology Group 5 (ICD-10-PCS; principal; 2020-04-17)
DX: U07.1 COVID-19 (principal); J12.82 Pneumonia due to coronavirus disease 2019; J96.01 Acute respiratory failure with hypoxia; J15.9 Unspecified bacterial pneumonia; J45.50 Severe persistent asthma, uncomplicated; E03.9 Hypothyroidism, unspecified; I10 Essential (primary) hypertension; E11.51 Type 2 diabetes mellitus with diabetic peripheral angiopathy without gangrene; G47.30 Sleep apnea, unspecified; I25.2 Old myocardial infarction; K21.9 Gastro-esophageal reflux disease without esophagitis; I25.10 Atherosclerotic heart disease of native coronary artery without angina pectoris; E78.5 Hyperlipidemia, unspecified; Z99.89 Dependence on other enabling machines and devices; Z79.899 Other long term (current) drug therapy; Z88.0 Allergy status to penicillin; Z79.84 Long term (current) use of oral hypoglycemic drugs
CPT/HCPCS: 0202U; 36415; 71045; 71275; 80053; 82728; 82803; 82962; 83605; 84484; 85025; 85384; 85610; 86140; 87040; 87077; 87150; 87186; 87804; 93005; 93010; 94640; 96365; 99285; C9803; J0456; J1100; J1650; J1815; J1940; J3490; J7050; J7060; J7613

== ENCOUNTER → 2020-05-03 | Outpatient (CLI) | payer MEDICARE ==
--- NOTE | 2020-05-04 08:09 | RADIOLOGY REPORT (SQ) ---
EXAM DESCRIPTION: CHEST 2 VIEWS IMAGES COMPLETED DATE/TIME: 05/03/2020 5:14 pm REASON FOR STUDY: COVID COMPARISON: 04/26/2020. EXAM PARAMETERS: NUMBER OF VIEWS: two views TECHNIQUE: Digital Frontal and Lateral radiographic views of the chest acquired. RADIATION DOSE: NA LIMITATIONS: none FINDINGS: LUNGS AND PLEURA: Diffuse bilateral airspace disease. No pleural effusion or pneumothorax . MEDIASTINUM AND HILAR STRUCTURES: No masses or contour abnormalities. HEART AND VASCULAR STRUCTURES: Heart normal size. No evidence for failure. BONES: No acute findings. HARDWARE: None in the chest. OTHER: No other significant finding. IMPRESSION: MULTIFOCAL PNEUMONIA. MAY BE SLIGHTLY WORSE. TECHNICAL DOCUMENTATION: JOB ID: [id number] 2010 [employer]- All Rights Reserved Reading location - IP/workstation name: [email or web address]
== END ==
LOC: RAD 16:39
PROVIDERS: ATTEND Internal Medicine
DX: U07.1 COVID-19 (principal)
CPT/HCPCS: 71046